=== PATIENT | male | born 1970 | race Caucasian/White ===

== ENCOUNTER 2020-10-27 15:33 | Emergency (ER) | payer OTHER, SELFPAY ==
[2020-10-27 15:43] VITALS: BP 125/64; PULSE 67; RESP 18; TEMP 37.4; O2SAT 98
--- NOTE | 2020-10-27 16:13 | ED.GENADULT ---
HPI - General Adult General Chief complaint: Upper Respiratory Infection Stated complaint: Sinus Time Seen by Provider: 10/27/20 16:00 Source: patient and RN notes reviewed Mode of arrival: ambulatory Limitations: no limitations History of Present Illness HPI narrative: Patient presents today complaining of pain to the left side of the nose x4 days. He does report intermittent swelling to this area as well as redness. Reports redness and swelling have resolved. Pain increases with touching the area, wearing his CPAP, or wearing his glasses for too long. Patient initially had some nasal congestion upon onset of symptoms, but this has resolved. Patient believed his symptoms were due to sinus issues and had been taking a decongestant without relief. He was also taking some Tylenol. He currently rates his pain 05/12. He has been vaccinated against COVID-19. History of diabetes and sleep apnea. The pain to the left side of the nose was such that he has not worn his CPAP for the last couple of days. MD complaint: Nose pain Related Data Home Medications Medication Instructions Recorded Confirmed aspirin 81 mg tablet,delayed 81 mg PO DAILY 10/24/19 10/24/19 release calcium carbonate 500 mg calcium 500 mg PO DAILY 10/24/19 10/24/19 (1,250 mg) tablet insulin aspart U-100 100 unit/mL 20 unit SUB-Q TID 10/24/19 10/24/19 (3 mL) subcutaneous pen sqvxibgvcnba-exe-yqbsb acid-vit 1 tablet PO DAILY 10/24/19 10/24/19 K-lycop 400 mcg-20 mcg-370 mcg tablet Allergies Allergy/AdvReac Type Severity Reaction Status Date / Time Penicillins Allergy Mild N/V Verified 10/29/19 13:57 Review of Systems Review of Systems: CONSTITUTIONAL: Denies body aches, fever, chills, or sweats. EYES: Denies visual changes, redness, or discharge. ENT: Denies rhinorrhea, congestion, sore throat, or otalgia.+ Pain, swelling, and redness to the left side of the nose CARDIOVASCULAR: Denies chest pain, palpitations, or edema. RESPIRATORY: Denies cough or dyspnea. GASTROINTESTINAL: Denies abdominal pain, nausea, vomiting, or diarrhea. GENITOURINARY: Denies dysuria or hematuria. SKIN: Denies rash, itching, or wounds. MUSCULOSKELETAL: Denies back pain, joint pain, or myalgia. NEUROLOGIC: Denies headache, numbness, tingling, or weakness. PSYCH: Denies depression or anxiety. [facility] Family History Family History Mother Family history of lung cancer Other Malignant neoplasm of prostate Social History Social History Smoking status: Current every day smoker Second hand tobacco smoke exposure: No Alcohol intake: never Comments At time of signature, I have reviewed and agree with nursing past medical, surgical, social and family history unless otherwise noted. Please see nursing chart for further information. There is no relevant family history pertinent to the presenting complaint Exam Narrative: GENERAL: Well-appearing, well-nourished, and in no acute distress. HEAD: Normocephalic, atraumatic. EYES: EOMI. No redness or drainage. Conjunctivae normal. ENT: Mucous membranes pink and moist. Nares clear. Some soft tissue tenderness to the left lateral nasal bridge. No edema noted. Subtle pinkness noted to area as well. This is the same area that would have pressure when patient wears his glasses and CPAP mask. Throat normal. Nontender frontal and maxillary sinuses. NECK: Normal AROM. Supple. No lymphadenopathy. CHEST: No respiratory distress. Clear to auscultation. HEART: Regular rate and rhythm. No murmur appreciated. Normal peripheral pulses. EXTREMITIES: Normal range of motion. No edema. SKIN: Warm, dry, no rash. Capillary refill normal. Normal skin turgor. NEURO: No focal deficits. Alert and oriented x3. Gait steady. PSYCH: Normal affect. No signs of depression or anxiety. Course Course Emergency Course:
== END 2020-10-27 16:20 | disposition home or self-care (01) ==
PROVIDERS: Emergency Provider Nurse Practitioner; PCP Internal Medicine
DX: J34.0 Abscess, furuncle and carbuncle of nose (principal); F17.200 Nicotine dependence, unspecified, uncomplicated; E78.00 Pure hypercholesterolemia, unspecified; G47.30 Sleep apnea, unspecified; E11.9 Type 2 diabetes mellitus without complications; Z96.41 Presence of insulin pump (external) (internal)
CPT/HCPCS: 99213; G0463

== ENCOUNTER 2021-03-31 09:20 | Outpatient (CLI) | payer OTHER, SELFPAY ==
[2021-03-31 11:24] LABS: SARS-CoV-2 RNA PCR Negative (Negative)
== END 2021-03-31 09:21 | disposition home or self-care (01) ==
LOC: CHSLAB 09:22
PROVIDERS: PCP Internal Medicine; Visit Provider Internal Medicine
DX: R68.89 Other general symptoms and signs (principal); Z20.822 Contact with and (suspected) exposure to COVID-19
CPT/HCPCS: C9803; U0003; U0005

== ENCOUNTER 2021-10-25 16:34 | Outpatient (CLI) | payer OTHER, SELFPAY ==
[2021-10-25 16:59] LABS: Alanine Aminotransferase 21 U/L (6-50); Aspartate Amino Transferase 27 U/L (17-59)
== END 2021-10-25 16:35 | disposition home or self-care (01) ==
LOC: ANHLAB 16:35
PROVIDERS: PCP Internal Medicine; Visit Provider Podiatrist Foot & Ankle Surgery
DX: B35.1 Tinea unguium (principal)
CPT/HCPCS: 36415; 84450; 84460

== ENCOUNTER 2022-01-24 16:23 | Outpatient (CLI) | payer OTHER, SELFPAY ==
[2022-01-24 17:01] LABS: Alanine Aminotransferase 28 U/L (6-50); Aspartate Amino Transferase 32 U/L (17-59)
== END 2022-01-24 16:24 | disposition home or self-care (01) ==
LOC: ANHLAB 16:27
PROVIDERS: PCP Family Medicine; Visit Provider Podiatrist Foot & Ankle Surgery
DX: B35.1 Tinea unguium (principal)
CPT/HCPCS: 36415; 84450; 84460

== ENCOUNTER 2023-04-04 09:35 | Emergency (ER) | payer OTHER, SELFPAY ==
[2023-04-04 09:56] VITALS: BP 121/80; PULSE 77; RESP 16; TEMP 36.8; O2SAT 98
--- NOTE | 2023-04-04 10:05 | ED.URI ---
HPI - URI/Sore Throat General Chief Complaint: Upper Respiratory Infection Stated Complaint: SINUS CONGESTION/DRAINAGE/COUGH/WEAK Source: patient and RN notes reviewed Mode of arrival: ambulatory Limitations: no limitations History of Present Illness HPI Narrative: 52 y/o male with hx DM presented for c/o headache, body aches, sinus pressure/congestion, cough, weakness, fever/chills. Onset 2-3 days. tested positive for Covid yesterday. Not taking anything for symptoms. Denies sob, wheezing, n/v/d. Smokes 1/2ppd. MD elicited complaint: cough Related Data Home Medications Medication Instructions Recorded Confirmed aspirin 81 mg tablet,delayed 81 mg PO DAILY 10/24/19 04/04/23 release (Adult Aspirin Regimen) calcium carbonate 500 mg calcium 500 mg PO DAILY 10/24/19 04/04/23 (1,250 mg) tablet (Calcium 500) mxivkvplzqec-unk-aqogs acid-vit 1 tablet PO DAILY 10/24/19 04/04/23 K-lycop 400 mcg-20 mcg-370 mcg tablet (One-A-Day Men's 50 Plus (with vitamin K)) insulin aspart U-100 100 unit/mL 0.1 unit continuous subcutaneous 11/07/21 04/04/23 subcutaneous solution (Novolog infusion DAILY U-100 Insulin aspart) atorvastatin 20 mg tablet 20 mg PO QHS 11/14/22 04/04/23 terbinafine HCl 250 mg tablet 250 mg PO .First week of month 11/14/22 04/04/23 Allergies Allergy/AdvReac Type Severity Reaction Status Date / Time Penicillins AdvReac Intermediate Nausea and Verified 04/04/23 09:44 Vomiting Review of Systems Review of Systems: CONSTITUTIONAL: Endorses malaise, chills, sweats, fever EYES: Denies visual changes, redness, or discharge ENT: Reports rhinorrhea, congestion, denies sinus pain, otalgia, sore throat CARDIOVASCULAR: Denies chest pain, palpitations, edema RESPIRATORY: Reports cough, post nasal drainage. Denies dyspnea GASTROINTESTINAL: Denies abdominal pain, nausea, vomiting, diarrhea SKIN: Denies rash or itching MUSCULOSKELETAL: Endorses myalgia NEUROLOGIC: Endorses headache PMFSH Past Medical History Medical History Cluster headaches Diverticulitis of large intestine Hyperlipidemia Sleep apnea in adult Uncomplicated type 1 diabetes mellitus Family History Family History Mother Family history of lung cancer Other Malignant neoplasm of prostate Social History Social History Smoking packs per day: 0.5 Smoking cigarettes per day: 10.0 Years smoked: 40 Smoking pack-years: 20.00 Smoking status: Current every day smoker Tobacco type: cigarettes Second hand tobacco smoke exposure: No Alcohol intake: never Substance use: never Substance use type: does not use Living arrangements: with family Occupation/Education: occupation 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 EYES: PERRLA, conjunctivae clear ENT: Mucous membranes moist. TM pearly garrett with dull light reflex bilaterally; no tragal tenderness. NECK: Supple. No lymphadenopathy CHEST: Clear to auscultation, breath sounds equal. No wheezing, rhonchi, rales, or stridor. No respiratory distress, speaks in full sentences. HEART: Regular rate and rhythm. No murmur heard. SKIN: Warm, dry, no rash. NEURO: Alert and oriented x3. PSYCH: Normal mood and affect Course Course Emergency Course: Patient is aware of diagnosis, understands and agrees to treatment plan. Anticipatory guidance given. Patient agrees to follow-up as directed and is aware of reasons to seek care at the emergency department. Portions of this record may have been created with voice recognition software
== END 2023-04-04 10:16 | disposition home or self-care (01) ==
PROVIDERS: Emergency Provider Nurse Practitioner Family; PCP Family Medicine
DX: U07.1 COVID-19 (principal); F17.210 Nicotine dependence, cigarettes, uncomplicated; E78.5 Hyperlipidemia, unspecified
CPT/HCPCS: 87426; 87804; 99213; C9803; G0463

== ENCOUNTER 2023-06-20 19:32 | Outpatient (NON) | payer OTHER, SELFPAY | END 2023-06-20 19:33 | disposition home or self-care (01) | LOC: ANHLAB 19:33 | PROVIDERS: PCP Family Medicine; Visit Provider Nurse Practitioner Family | DX: R31.9 Hematuria, unspecified (principal) | CPT/HCPCS: 87086 ==

== ENCOUNTER 2023-06-21 15:51 | Outpatient (CLI) | payer OTHER, SELFPAY ==
[2023-06-21 16:40] LABS: Basophils Absolute Auto 0.1 K/mm3 (0.0-0.1); Basophils Percent Auto 0.7 % (0.2-1.2); Eosinophils Absolute Auto 0.1 K/mm3 (0-0.3); Eosinophils Percent Auto 1.2 % (0-4.4); Hematocrit 44.1 % (42.0-52.0); Hemoglobin 14.4 g/dL (14.0-18.0); Immature Granulocyte Absolute 0.01 K/mm3 (0.00-0.031); Immature Granulocyte Percent A 0.1 % (0-0.5); Lymphocytes Absolute Auto 3.29 K/mm3 (0.9-3.2); Lymphocytes Percent Auto 38.9 % (18.3-44.2); Mean Corpuscular HGB Conc 32.7 g/dl (32-36); Mean Corpuscular Hemoglobin 30.8 pg (26-34); Mean Corpuscular Volume 94.2 fl (80-100); Mean Platelet Volume 10.4 fl (7.4-10.4); Monocytes Absolute Auto 0.7 K/mm3 (0.1-0.6); Monocytes Percent Auto 8.2 % (2.6-8.5); Neutrophils Absolute Auto 4.3 K/mm3 (1.3-6.7); Neutrophils Percent Auto 50.9 % (45.5-73.1); Platelet Count Result 230 k/mm3 (150-375); Red Blood Count 4.68 M/mm3 (4.6-6.20); Red Cell Distribution Width 12.6 % (11.5-14.5); White Blood Count 8.5 K/mm3 (4.5-10.0)
[2023-06-21 16:57] LABS: Alanine Aminotransferase 27 U/L (6-50); Albumin Level 4.4 g/dL (3.5-5.1); Alkaline Phosphatase 109 U/L (38-126); Anion Gap 2 mmol/L (8-16); Aspartate Amino Transferase 25 U/L (17-59); Bilirubin,Total 0.3 mg/dL (0.2-1.3); Blood Urea Nitrogen 14 mg/dL (9-20); Calcium 9.4 mg/dL (8.4-10.2); Carbon Dioxide 32 mmol/L (22-30); Chloride 104 mmol/L (98-107); Estimated Glomerular Filt Rate > 60; Glucose 149 mg/dL (65-110); Potassium 4.1 mmol/L (3.4-5.0); Sodium 138 mmol/L (137-145)
[2023-06-23 17:53] LABS: PSA, Free 0.15 ng/mL; PSA, Total 0.7 ng/mL (<=4.0)
[2023-06-26 07:35] LABS: CRP, High Sensitivity 1.8 mg/L (***)
== END 2023-06-21 15:52 | disposition home or self-care (01) ==
LOC: ANHGOSHLAB 15:52
PROVIDERS: PCP Family Medicine; Visit Provider Nurse Practitioner Family
DX: Z00.00 Encounter for general adult medical examination without abnormal findings (principal); R10.9 Unspecified abdominal pain; R11.10 Vomiting, unspecified; R19.7 Diarrhea, unspecified; R35.0 Frequency of micturition; R39.89 Other symptoms and signs involving the genitourinary system; R31.9 Hematuria, unspecified; Z12.5 Encounter for screening for malignant neoplasm of prostate
CPT/HCPCS: 36415; 80053; 84153; 84154; 85025; 86141

== ENCOUNTER 2023-06-27 10:44 | Outpatient (CLI) | payer OTHER, SELFPAY ==
--- NOTE | ~2023-06-27 | CT_ITS ---
EXAMINATION: CT abdomen pelvis wo con DATE: 06/27/2023 14:37 INDICATION: Unspecified abdominal pain, frequent urination TECHNIQUE: Computed tomography (CT) of the abdomen and pelvis was performed without intravenous contr ast. The dose-length product (DLP) was 563.54 mGy-cm. Automated exposure control and iterative recons truction technique were employed. COMPARISON: 09/20/2017 FINDINGS: Calcified nodules of the visualized lung bases are consistent with old granulomatous diseas e. The heart size is normal. Punctate calcifications in an otherwise normal spleen likely represent h ealed granulomatous disease. The liver, pancreas, gallbladder, and left adrenal gland are normal. The re is a stable 1.3 cm low-density mass of the right adrenal gland, consistent with an adenoma. The ki dneys are unremarkable. A moderate volume of colonic stool is present. No pathologically enlarged abd ominal or pelvic lymph nodes are identified. No free intraperitoneal gas or evidence of bowel obstruc tion. There is a tiny umbilical hernia containing fat. IMPRESSION: 1. No CT correlate for the patient's symptoms. Reviewed, dictated and finalized at location F.
== END 2023-06-27 10:45 ==
PROVIDERS: PCP Nurse Practitioner Family; Visit Provider Family Medicine
DX: R10.9 Unspecified abdominal pain (principal); R11.10 Vomiting, unspecified; R19.7 Diarrhea, unspecified; R35.0 Frequency of micturition; R39.89 Other symptoms and signs involving the genitourinary system
CPT/HCPCS: 74176

== ENCOUNTER 2024-04-04 14:38 | Outpatient (CLI) | payer OTHER, SELFPAY ==
[2024-04-04 18:34] LABS: Alanine Aminotransferase 24 U/L (6-50); Albumin Level 4.1 g/dL (3.5-5.1); Alkaline Phosphatase 98 U/L (38-126); Aspartate Amino Transferase 31 U/L (17-59); Bilirubin,Total 0.3 mg/dL (0.2-1.3); Cholesterol 200 mg/dL (0-200); HDL Direct 95 mg/dL; Triglycerides 117 mg/dL (<150)
[2024-04-04 18:46] LABS: LDL Cholesterol Direct 69 mg/dL
== END 2024-04-04 14:39 | disposition home or self-care (01) ==
LOC: ANHGOSHLAB 14:41
PROVIDERS: PCP Family Medicine
DX: E78.2 Mixed hyperlipidemia (principal); E27.8 Other specified disorders of adrenal gland; Z96.41 Presence of insulin pump (external) (internal)
CPT/HCPCS: 36415; 80061; 80076

== ENCOUNTER 2024-04-09 11:45 | Outpatient (CLI) | payer OTHER, SELFPAY ==
--- NOTE | ~2024-04-09 | XR_ITS ---
XR cervical spine 4-5V Ordering provider: Woody Hamm, DC CCST History: . Cervical radiculopathy . Comparison: None. FINDINGS: VERTEBRAL BODIES: Normal height and alignment. No visible fracture or subluxation. The dens is intact . DISK SPACES: Narrowing of the disc C5-C6 and C6-C7. Multilevel uncovertebral joint osteoarthritic gary nges. Narrowing of the intervertebral foramina in the lower cervical area on the left side. PARASPINOUS SOFT TISSUES: No prevertebral soft tissue swelling. IMPRESSION: No acute osseous abnormality cervical spine. Multilevel degenerative disc disease. Reviewed, dictated and finalized at location A. MOTIVE SALES PROFESSIONAL
== END 2024-04-09 11:46 | disposition home or self-care (01) ==
LOC: MICIMG 11:47
PROVIDERS: PCP Family Medicine; Visit Provider Chiropractor
DX: M50.322 Other cervical disc degeneration at C5-C6 level (principal); M50.323 Other cervical disc degeneration at C6-C7 level; T50.A15A Adverse effect of pertussis vaccine, including combinations with a pertussis component, initial encounter
CPT/HCPCS: 72050

== ENCOUNTER 2024-05-01 16:07 | Outpatient (CLI) | payer OTHER, SELFPAY ==
--- NOTE | ~2024-05-01 | XR_ITS ---
EXAM: XR shoulder RT min 2V DATE: 05/01/2024 16:22 HISTORY: M25.511 - Pain in right shoulder . COMPARISON: None available. FINDINGS: Normal mineralization. No fracture or dislocation. No lytic or blastic lesion. Inferior os teophytosis at the acromion. Mild degenerative change at the AC joint and glenohumeral joint. No eros ion or periosteal change. Soft tissues within normal limits. IMPRESSION: Mild polyarticular osteoarthritis of the right shoulder. Reviewed, dictated and finalized at location K. ATE DUTY AIDE
== END 2024-05-01 16:08 | disposition home or self-care (01) ==
LOC: GOSHIMG 16:08
PROVIDERS: PCP Family Medicine; Visit Provider Nurse Practitioner
DX: M19.011 Primary osteoarthritis, right shoulder (principal)
CPT/HCPCS: 73030

== ENCOUNTER 2024-05-12 14:51 | Outpatient (CLI) | payer OTHER, SELFPAY ==
--- NOTE | ~2024-05-12 | MR_ITS ---
EXAMINATION: MR shoulder RT wo con DATE: 05/12/2024 15:36 INDICATION: Right shoulder pain. TECHNIQUE: Magnetic resonance imaging (MRI) of the right shoulder was performed without intravenous c ontrast. Sequences included axial PD-weighted FS FSE, coronal oblique PD-weighted FS FSE and T2-weigh renata FS FSE, and sagittal oblique T2-weighted FS FSE and T1-weighted FSE. COMPARISON: Right shoulder radiographs 05/01/2024 FINDINGS: Coracoacromial arch: The acromion undersurface is flat in morphology (type I). There is severe acromioclavicular joint ost eoarthritis. There is mild subacromial/subdeltoid bursitis. Rotator cuff: There is mild supraspinatus and infraspinatus tendinopathy. Teres minor tendon is normal. There is mi ld subscapularis tendinopathy. There is no asymmetric fatty atrophy of the rotator cuff muscle bellie s. Biceps tendon and glenoid labrum: Biceps tendon is in bicipital groove. Intra-articular biceps tendon is normal. The glenoid labrum is normal. Fluid: There is a small glenohumeral joint effusion. Bones/cartilage: Glenoid cartilage is normal. Humeral head cartilage is normal. IMPRESSION: 1. Mild rotator cuff tendinopathy. No tear. 2. Mild subacromial/subdeltoid bursitis. 3. Small glenohumeral joint effusion. 4. Severe acromioclavicular joint osteoarthritis. Reviewed, dictated and finalized at location A. OR GEOTECHNICAL ENGINEER
--- NOTE | ~2024-05-12 | MR_ITS ---
EXAMINATION: MR cervical spine wo con DATE: 05/12/2024 16:03 INDICATION: Neck pain. Right shoulder pain. TECHNIQUE: Magnetic resonance imaging (MRI) of the cervical spine was performed without intravenous c ontrast. Sequences included sagittal T2-weighted FSE, sagittal T2-weighted FS FSE, sagittal T1-weight ed FSE, axial MERGE, and axial T2-weighted FSE. COMPARISON: Cervical spine radiographs 04/09/2024 FINDINGS: There is 3 degrees dextrocurvature of cervical spine. Vertebral body heights are normal. Th ere is mildly decreased disc height at C5-C6 and C6-C7. The spinal cord signal intensity is normal. T he following disc levels are specifically discussed: C2-C3: The disc does not extend beyond the endplate margin. There is no uncovertebral joint osteoarth ritis. There is mild bilateral facet joint osteoarthritis. There is no neural foraminal stenosis. The re is no central canal stenosis. C3-C4: The disc does not extend beyond the endplate margin. There is mild bilateral uncovertebral hina nt osteoarthritis. There is mild right and moderate left facet joint osteoarthritis. There is mild le ft neural foraminal stenosis. There is no central canal stenosis. C4-C5: The disc does not extend beyond the endplate margin. There is no uncovertebral joint osteoarth ritis. There is mild bilateral facet joint osteoarthritis. There is no neural foraminal stenosis. The re is no central canal stenosis. C5-C6: There is a left central extrusion. There is mild right and moderate left uncovertebral joint o steoarthritis. There is mild bilateral facet joint osteoarthritis. There is mild bilateral neural for aminal stenosis. There is mild central canal stenosis. C6-C7: The disc is bulging. There is moderate bilateral uncovertebral joint osteoarthritis. There is mild right and moderate left facet joint osteoarthritis. There is mild bilateral neural foraminal joseph nosis. There is mild central canal stenosis. C7-T1: The disc does not extend beyond the endplate margin. There is no uncovertebral joint osteoarth ritis. There is mild bilateral facet joint osteoarthritis. There is no neural foraminal stenosis. The re is no central canal stenosis. IMPRESSION: 1. Mild cervical spondylosis. Reviewed, dictated and finalized at location A. ERY STARTER
== END 2024-05-12 14:52 | disposition home or self-care (01) ==
LOC: GOSHIMG 14:52
PROVIDERS: PCP Chiropractor; Visit Provider Nurse Practitioner
DX: M75.31 Calcific tendinitis of right shoulder (principal); M47.812 Spondylosis without myelopathy or radiculopathy, cervical region
CPT/HCPCS: 72141; 73221

== ENCOUNTER 2024-07-08 10:43 | Outpatient (CLI) | payer OTHER, SELFPAY ==
--- NOTE | 2024-07-08 11:30 | NEURO_ITS ---
Impression: # Complains of paresthesia of upper extremities. Not diabetic. ? # Bilateral ulnar neuropathy around the elbows. ? # No Carpal Tunnel Syndrome. ? # Needle/EMG exam abnormal proximally as well including deltoid and triceps muscles bilaterally suggesting ? higher involvement as well. ? # Clinical correlation recommended. ?? Nerve Conduction Studies Anti Sensory Summary Table ?Stim Site NR Peak (ms) P-T Amp (?V) Site1 Site2 Delta-P (ms) Dist (cm) Derian (m/s) Left Median Anti Sensory (2-3nd Digit) Wrist ? 3.4 39.7 Wrist 2-3nd Digit 3.4 14.0 41 Wrist ? 3.6 68.2 Wrist 2-3nd Digit 3.4 14.0 41 Right Median Anti Sensory (2-3nd Digit) Wrist ? 3.4 40.0 Wrist 2-3nd Digit 3.4 14.0 41 Wrist ? 3.2 62.5 Wrist 2-3nd Digit 3.4 14.0 41 Left Radial Anti Sensory (Base 1st Digit) Wrist ? 2.3 20.7 Wrist Base 1st Digit 2.3 0.0 Right Radial Anti Sensory (Base 1st Digit) Wrist ? 2.8 18.5 Wrist Base 1st Digit 2.8 0.0 Left Ulnar Anti Sensory (5th Digit) Wrist ? 3.2 33.6 Wrist 5th Digit 3.2 14.0 44 Right Ulnar Anti Sensory (5th Digit) Wrist ? 3.3 66.3 Wrist 5th Digit 3.3 14.0 42 Motor Summary Table ?Stim Site NR Onset (ms) O-P Amp (mV) Site1 Site2 Delta-0 (ms) Dist (cm) Derian (m/s) Left Median Motor (Abd Poll Brev) Wrist ? 4.0 2.7 Elbow Wrist 5.1 29.0 57 Elbow ? 9.1 5.8 Right Median Motor (Abd Poll Brev) Wrist ? 3.4 2.9 Elbow Wrist 5.7 29.0 51 Elbow ? 9.1 8.0 Left Ulnar Motor (Abd Dig Minimi) Wrist ? 2.8 8.9 A Elbow Wrist 6.1 29.0 48 A Elbow ? 8.9 7.8 B Elbow Wrist 4.1 23.0 56 B Elbow ? 6.9 6.7 Right Ulnar Motor (Abd Dig Minimi) Wrist ? 3.0 9.2 A Elbow Wrist 6.2 29.0 47 A Elbow ? 9.2 8.0 B Elbow Wrist 4.7 22.0 47 B Elbow ? 7.7 8.2 F Wave Studies ?NR F-Lat (ms) L-R F-Lat (ms) Left Median (Mrkrs) (Abd Poll Brev) ? 30.70 0.94 Right Median (Mrkrs) (Abd Poll Brev) ? 29.77 0.94 Left Ulnar (Mrkrs) (Abd Dig Min) ? 30.16 1.60 Right Ulnar (Mrkrs) (Abd Dig Min) ? 31.76 1.60 EMG ?Side Muscle Nerve Root Ins Act Fibs Amp Dur Recrt Comment Right 1stDorInt Ulnar C8-T1 Nml Nml Nml Nml Nml Right Ext Indicis Radial (Post Int) C7-8 Nml Nml Nml Nml Nml Right Ext Digitorum Radial (Post Int) C7-8 Nml Nml Nml Nml Nml Right BrachioRad Radial C5-6 Nml Nml Nml Nml Nml Right PronatorTeres Median C6-7 Nml Nml Nml Nml Nml Right Abd Poll Brev Median C8-T1 Nml Nml Nml Nml Nml Right ABD Dig Min Ulnar C8-T1 Nml Nml Nml Nml Nml Right FlexPolLong Median (Ant Int) C7-8 Nml Nml Nml Nml Nml Right Abd Poll Long Radial (Post Int) C7-8 Nml Nml Nml Nml Nml Left 1stDorInt Ulnar C8-T1 Nml Nml Nml Nml Nml Left Ext Indicis Radial (Post Int) C7-8 Nml Nml Nml Nml Nml Left Ext Digitorum Radial (Post Int) C7-8 Nml Nml Nml Nml Nml Left BrachioRad Radial C5-6 Nml Nml Nml Nml Nml Left PronatorTeres Median C6-7 Nml Nml Nml Nml Nml Left Abd Poll Brev Median C8-T1 Nml Nml Nml Nml Nml Left ABD Dig Min Ulnar C8-T1 Nml Nml Nml Nml Nml Right Biceps Musculocut C5-6 Nml Nml Nml >12ms +1 Right Triceps Radial C6-7-8 Nml Nml Nml >12ms +1 Right Deltoid Axillary C5-6 Nml Nml Nml Nml Nml Left Biceps Musculocut C5-6 Nml Nml Nml >12ms +1 Left Triceps Radial C6-7-8 Nml Nml Nml >12ms +1 Left Deltoid Axillary C5-6 Nml Nml Nml Nml Nml MTDD
--- OUTSIDE RECORDS SUMMARY | 2024-07-08 12:04 | XMS_ITS | Clinical Summary ---
Author Organization [facility] Address On license of [facility] [place] [address] Care Team Providers Care Addictions Counselor Name Role Phone Unavailable Primary Care Provider Unavailabl e Social History Tobacco Use Types Packs/Day Years Used Date Smoking Tobacco: Never Assessed Sex and Gender Information Value Date Recorded Sex Assigned at Not on file Legal Sex Male 6:24 PM CDT Gender Identity Not on file Sexual Orientation Not on file Plan of Treatment Health Maintenance Due Date Last Done Comments Colorectal Cancer Screening Colonoscopy (10 Years) 1969 Annual Physical 1972 Hepatitis C 07/14/1987 DTaP, Tdap and Td Vaccines ( 1 - Tdap) 1988 Hepatitis B Vaccines (1 of 3 - 19+ 3-dose series) 1988 Zoster Vaccines (1 of 2) 07/14/2019 COVID-19 Vaccine ( - 2023-2 5 season) 2023 Meningococcal B Vaccine Aged Out No l onger eligible based on patient's age to complete this topic Meningococcal Vaccine Aged Out No giancarlo doris eligible based on patient's age to complete this topic Pneumococcal Vaccine: Pediat rics (0 to 5 Years) and At-Risk Patients (6 to 64 Years) Aged Out No longer eligible b ased on patient's age to complete this topic RSV Immunizations Under 20 Months Aged Out No longer eligible based on patient's age to complete this topic
--- OUTSIDE RECORDS SUMMARY | 2024-07-08 12:04 | XMS_ITS | Continuity of Care Document ---
Author Organization [facility] Address [address] [place] [address] Phone Care Team Providers Care Dry Cure Worker Name Role Phone Arredondo OD, Evan Unavailable Unavailable Advance Directives Directive Yes / No Effective Date File Name No Information Encounters Encounter Description Practice Location Reason(s) For Visit Diagnoses Date Provider Providers Copied on Encounter [facility], [address], [place], [place], [id number], [place] tel:[phone] [facility] No Information 0 [phone] Arredondo OD Evan. [address] , [address], [place], [address], [place]. tel:[phone] Family History Family Member Type Diagnosis Age At Onset No Information Payers Payer name Insurance type Covered democrat ID Authoriza tion(s) No Information Social History Type Description Quantity Date Captured Comments Sex Male Smoking Status No Information Chief Complaint And Reason For Visit No Information Reason For Referral Reason For Referral No Information History Of Present Illness Encounter Date Complaint History Of Prese nt Illness No Information Functional Status Date Functional Assessmen t No Information Instructions Date Instruction Additional Infor mation No Information Assessments Type Assessment Date No Information Patient Care Teams Name Effective Dates (start - stop) Status Members No Information
--- OUTSIDE RECORDS SUMMARY | 2024-07-08 12:04 | XMS_ITS | Clinical Summary ---
Author Organization [employer] [employer] [facility] ing Address [address] [place] [address] Care Team Providers Care Equipment Washer Name Role Phone Unavailable Primary Care Provider Unavailabl e Allergies Active Allergy Reactions Criticality Noted Date Comments Ampicillin Nausea and Vomiting Low 10/08/2014 Penicillins Nausea and Vomiting Low 10/08/2014 Medications metFORMIN (GLUCOPHAGE XR) 500 mg Extended Release 24 hour tablet Take 4 tablets QAM. 5 Active MULTIVITS-MINERAL S/FA/LYCOPENE (ONE-A-DAY MEN'S MULTIVITAMIN ORAL) Take by mouth Take 1 tablet daily . Active calcium citrate-vitamin d3 (CITRACAL D MAX) 315-250 mg-unit Tablet Take 1 Tab by mouth 2 times daily. Active lancets (ONE TOUCH DELICA) 33 gauge Check 3 times a day. 100 Package 0 5 Active cholecalciferol, Vitamin D3, (VITAMIN D3) 1,000 unit Capsule Take 1,000 Units by mouth daily. Active NOVOLOG 100 unit/mL vial Sliding Scale on Pump. 6 Active OTHER One Touch Verio Strips TID . Active Clobetasol-Emolie nt 0.05 % Foam Apply to affected area 2 times daily . 6 Active EPITOL 200 mg tablet Take one tablet by mouth every 12 hours 180 Tablet 2 7 Active simvastatin (ZOCOR) 20 mg tablet TAKE ONE TABLET BY MOUTH ONE TIME DAILY 90 Tablet 2 8 Active Active Problems Problem Noted Date Diagnosed Date Diverticulitis of large inte caty without perforation or abscess without bleeding 05/26/2017 Overview (05/26/2017): 05/20 - managed medically Right adrenal mass 05/26/2017 Overview (05/26/2017): 2/18 - 1.2 cm R adrenal mass , benign appearing De Quervain's disease (tenosynovitis) 03/21/2016 Intrinsic eczema 01/19/2015 Impotence of organic origin 01/19/2015 Trigeminal neuralgia of right side of face 10/08 Overview (10/08/2014): Diagnosed in , R sided, headaches and lacrimation, started epitol and improved. Diabetes mellitus type 1 Overview (01/19/2015): 07/2014 - insulin started Antibodies 06/27/14 - ÓSCAR 65 markedly elevated 99.3 (0.0-1.5) Hyperlipidemia Tobacco abuse disorder Immunizations Immunization Administration Dates Next Due (ADACEL/BOOSTRIX)(10 YR UP) TDAP VACCINE, 0.5ML, IM 10/11/2015 (PNEUMOVAX 23)(50 YRS UP) PN EUMOCOCCAL POLYSACCHARIDE (PPV23) 0.5 ML, IM 10/08/2014 Influenza Seasonal Unspecified Formulation IM Influenza Vaccine Split 3+ Yrs PF IM 01/06/2017, 01/06/2016 Family History Medical History Relation Name Comments Healthy Father Lung Cancer Mother Relation Name Status Comments Father Mother Alive Social History Tobacco Use Types Packs/Day Years Used Date Smoking Tobacco: Every Day Cigarettes 1 33 Smokeless Tobacco: Never Tobacco Cessation:Ready to Q uit: No; Counseling Given: Yes Alcohol Use Standard Drinks/Week Comments No 0 (1 standard drink = 0.6 oz pur e alcohol) recovering alcoholic Sex and Gender Information Value Date Recorded Sex Assigned at Not on file Legal Sex Male 12:52 PM CDT Gender Identity Not on file Sexual Orientation Not on file Last Filed Vital Signs Vital Sign Reading Time Taken Comments Blood Pressure 113/62 03/20/2017 1:07 PM ENGINEERING ANALYST Pulse 72 03/20/2017 1:07 PM ENGINEERING ANALYST Temperature - - Respiratory Rate - - Oxygen Saturation 97% 10/16/2016 10:28 AM CDT Inhaled Oxygen Concentration - - Weight 83.1 kg (183 lb 3.2 oz) 03/20/2017 1:07 P M ENGINEERING ANALYST Height 175.3 cm (5' 9 ) 03/20/2017 1:07 PM ENGINEERING ANALYST Body Mass Index 27.05 03/20/2017 1:07 PM ENGINEERING ANALYST Plan of Treatment Health Maintenance Due Date Last Done Comments HEPATITIS B VACCINES (1 of 3 - 19+ 3-dose series) 1988 COLORECTAL SCREENING 2014 Colorectal Cancer Screening 2014 FIT-DNA Q 3 years 2014 FIT/FOBT Q 1 year 2014 Flex Sig/CT Colonography Q 5 years 2014 PNEUMOCOCCAL VACCINE 0-49 YE ARS (2 of 2 - PCV) 10/09/2015 10/08/2014 DIABETES MICROALBUMIN ANNUAL SCREEN 10/11/2016 10/12/2015 DIABETES HBA1C Q 6 MONTHS 04/18/20172016, 02/23/2016, 10/12/2015, Additional history exists DIABETES ANNUAL FOOT EXAM 10/16/20172016, 10/16/2016, 10/11/2015, Additional history exists LDL CHOLESTEROL ANNUAL 10/16/2017 7, 10/12/2015, 09/24/2014 DIABETES ANNUAL RETINAL EXAM 04/10/201812/2017, 03/28/2016, 04/02/2015, Additional history exists ZOSTER VACCINE (1 of 2) 07/14/2019 INFLUENZA VACCINE (#1) 2023 7, 01/06/2016, 01/07/2015 DTAP/TDAP/TD VACCINES (2 - T d or Tdap) 10/10/2025 10/11/2015 Procedures Procedure Name Priority Date/Time Associated Diagnosis Comments DIABETES EYE EXAM Routine 04/10/2017 LIPID PANEL Routine 10/16/2016 11:48 AM CDT Pure hypercholesterolemia HEMOGLOBIN A1C Routine 10/16/2016 11:48 AM CDT Type 1 diabetes mellitus without complication (CMS/HCC) MICROALBUMIN/CREA TININE RATIO, RANDOM UR Routine 10/12/2015 7:20 AM CDT Type 1 diabetes mellitus without complication (CMS/HCC) from Last 3 Months or Most Recently Relevant to Health Maintenance Results * DIABETES EYE EXAM (04/10/2017) us Martin Rudolph III, OD HEALTH MAINTENANCE Edited Result - Final [facility] CLIA# [id number] [address] * (ABNORMAL) HEMOGLOBIN A1C (10/16/2016 11:48 AM CDT) HEMOGLOBIN A1C 6.8(H) 4.0 - 6.0 % 10/16/2016 7:24 PM CDT [facility] Comment:Note: Effective as o f 04/23/2015 a new methodology, Turbidimetric inhibition immunoassay (TINIA),has been implemented. EST. AVG GLUCOSE, A1C 148 mg/dL 10/16/2016 7:24 PM CDT [facility] Blood Venipuncture / Unknown 10/16/2016 11:48 AM CDT 10/16/2016 11:48 AM CDT us Tr Devi MD CHEMISTRY ORDERABLES Fi nal Result [facility] CLIA# [id number] [address] [facility] [place] [address] * (ABNORMAL) LIPID PANEL (10/16/2016 11:48 AM CDT) CHOLESTEROL 182 <200 mg/dL 10/16/2016 7:33 PM CDT [facility] TRIGLYCERIDE 49 <150 mg/dL 10/16/2016 7:33 PM CDT [facility] HDL 103(H) 40 - 59 mg/dL 10/16/2016 7:33 PM CDT [facility] LDL CALCULATED 69 <100 mg/dL 10/16/2016 7:33 PM CDT [facility] NON-HDL CHOLESTEROL 79 <130 mg/dL 10/16/2016 7:33 PM CDT [facility] Blood Venipuncture / Unknown 10/16/2016 11:48 AM CDT 10/16/2016 11:48 AM CDT Narrative [facility] - 10/16/2016 7:33 PM CDT TOTAL CHOLESTEROL mg/dL Desirable <200 Borderline high 200-239 High >=240 TRIGLYCERIDES mg/dL Normal <150 Borderline high 150-199 High 200-499 Very high >=500 HDL CHOLESTEROL mg/dL Low <40 Normal 40-59 Desirable >=60 NON HDL CHOLESTEROL mg/dL Optimal <130 Near Optimal 130-159 Borderline High 160-189 Very High >=190 Calculated LDL mg/dL Optimal <100 Near Optimal 100-129 Borderline High 130-159 High 160-189 Very High >=190 ATPIII Guidelines Reference Ranges for Lipid Panels (NCEP/AMA) us Tr Devi MD CHEMISTRY ORDERABLES Fi nal Result Performing Organization Address City/[facility]/ZIP Co de Phone Number [facility] CLIA# [id number] [address] [place] [address] * MICROALBUMIN/CREATININE RATIO, RANDOM UR (10/12/2015 7:20 AM CDT) Creatinine, Urine 57.4 Not Estab. mg/dL [facility] MICROALBUMIN URINE <3.0 Not Estab. ug/mL [facility] MICROALBUMIN/CREA T RATIO, UR <5.2 0.0 - 30.0 mg/g creat [facility] Urine specimen (specimen) URINE SPECIMEN OBTAINED BY CLEAN CATCH PROCEDURE / Unknown 10/12/2015 7:20 AM CDT 10/12/2015 12:35 PM CDT Narrative [facility] - 10/14/2015 7:16 AM CDT Performed at: [address] [place] [id number] Preparing Box Tender: Ronnie Ayon PhD, Phone: [phone] us Tr Devi MD URINE ORDERABLES Final Result [facility] from Last 3 Months or Most Recently Relevant to Health Maintenance Insurance [employer] O OPEN ACCESS
--- OUTSIDE RECORDS SUMMARY | 2024-07-08 12:05 | XMS_ITS | Clinical Summary ---
Author Organization [facility] 2 Address [address] [facility] [place] [address] Care Team Providers Care Nuclear Equipment Sales Engineer Name Role Phone Cele Boyer DO Primary Care Provider [phone] Allergies Active Allergy Reactions Criticality Noted Date Comments Ampicillin Penicillins Medications aspirin 81 mg tablet take one daily 06/25/19 15 Active pen needle, diabetic 32 gauge x 5/32 needle using 4 -6 a day 08/06/19 15 Active carBAMazepine (TEGretol) 200 mg tablet 2 times daily. 06/25/19 15 Active multivitamin tabletIndications :Vitamin Deficiency Prevention Take by mouth. Active clobetasol-emolli ent 0.05 % topical foam Apply topically 2 times daily 03/07/20 16 Active glucagon (Baqsimi) 3 mg/actuation spray,non-aerosol Administer 3 mg into affected nostril(s) as needed (hypoglycemia ) 2 each 11 04/29/19 20 Active calcium carbonate (OS-SAMY) 1,250 mg (500 mg elemental) tablet 11/01/19 21 Active lancets (Accu-Chek Fastclix Lancet Drum) miscIndications:T ype 1 diabetes mellitus without complication (HCC) Use to check blood sugar 2-3 times per day using the accu-chek guide 200 each 3 12/28/19 21 Active urine glucose-ketones test strip Use as directed for blood sugar > 300 or when sick 50 strip 1 03/08/20 21 Active cholecalciferol (VITAMIN D-3) 2000 unit tablet Act aleksey terbinafine (LamiSIL) 250 mg tablet Take 1 tablet (250 mg total) by mouth daily 10/29/19 22 Active insulin glargine (BASAGLAR) 100 unit/mL (3 mL) pen for injectionIndicati ons:Type 1 diabetes mellitus without complication (HCC) Inject 20 units once daily in case of pump failure 15 mL 1 08/02/19 23 Active blood glucose diagnostic stripIndications: Type 1 diabetes mellitus without complication (HCC) Use to test glucose 2-3 times a day using accuchek guide 100 each 3 04/04/19 25 Active atorvastatin (LIPITOR) 40 mg tabletIndications :Mixed hyperlipidemia Take 1 tablet (40 mg total) by mouth daily 90 tablet 3 04/04/19 25 Active insulin aspart (NovoLOG) 100 unit/mL vial for injectionIndicati ons:Type 1 diabetes mellitus without complication (HCC) USE PER INSULIN PUMP - DAILY DOSE OF 100 UNITS 90 mL 2 06/24/19 25 Active insulin aspart (NovoLOG) 100 unit/mL vial for injectionIndicati ons:Type 1 diabetes mellitus without complication (HCC) USE PER INSULIN PUMP - DAILY DOSE OF 100 UNITS 90 mL 2 08/13/19 24 2024 Discontinued Active Problems Problem Noted Date Diagnosed Date Right adrenal mass 04/04/2024 clinical specialist medical device associated with adverse incidents 03/08/2021 Assessment & Plan (03/08/2021 5:36 PM CLINICAL MATERIAL HANDLER): He is adept in using and managing the insulin pump and CGM. Diabetes education is beneficial for him as he is intelligent and motivated to manage his diabetes. Has immunity to COVID-19 virus 03/08/2021 Overview (03/08/2021): Pfizer vaccine x2 doses. Booster x1 dose. Vitamin D deficiency 12/07/2020 Assessment & Plan (09/04/2021 12:41 PM CDT): -Continue current Vitamin D supplement Assessment & Plan (03/08/2021 5:35 PM CLINICAL MATERIAL HANDLER): Continue over the counter supplements. 08/2020- Vitamin D 19 Insulin pump titration 12/07/2020 Mixed hyperlipidemia 09/25/2014 Assessment & Plan (12/07/2021 12:20 PM CDT): -Last labs dated 09/10/21 : TC 214 Trig 54 HDL 96 LDL 108 -Will continue same medical management Assessment & Plan (09/04/2021 12:42 PM CDT): -Last LDL was 97 in August 2020 -Will continue statin as it is being tolerated without side effects Assessment & Plan (03/08/2021 5:35 PM CLINICAL MATERIAL HANDLER): Continue statin therapy and optimize glycemic control. 08/2020- HDL 102, LDL 97 Assessment & Plan (04/28/2019 10:31 AM CLINICAL MATERIAL HANDLER): Continue simvastatin. Tolerating without side effects. Assessment & Plan (01/14/2019 11:03 AM CDT): Continue simvastatin. Tolerating without side effects. Assessment & Plan (10/19/2018 3:15 PM CDT): Continue statin. Tolerating without side effects. Assessment & Plan (04/10/2018 2:46 PM CLINICAL MATERIAL HANDLER): Lipid panel on September 17, 2017 showed total cholesterol 196, triglyceride 69, HDL 94, LDL 88. Will continue simvastatin 20 mg at bedtime. Assessment & Plan (09/17/2017 8:42 PM CDT): 09/17/2017 LDL 88; HDL 94 and NLF Continue simvastatin Lipids will be reassessed in 1 year. Type 1 diabetes mellitus without complication Assessment & Plan (12/07/2021 12:19 PM CDT): -Currently using Tandem insulin pump with Dexcom and Control IQ -A1C on 12/07/21 was 7.8% -Dexcom download indicates some variability. His correction doses have not been lowering him enough so he gives additional correction doses, which leads to stacking of insulin resulting in some lows. Will adjust correction factor from 30-->25 and follow with his response. May consider adjusting carb ratio as well later on. -Discussed diet and activity modifications. -Advised to call with any concerns/complaints regarding glucose readings -Eye exam is up to date Assessment & Plan (09/06/2021 4:43 PM CDT): -Currently using Tandem insulin pump with Dexcom and Control IQ -A1C on 09/06/2021 was 8% - Dexcom download indicates some post meal glucose excursions. Will change his 7:00 a.m. settings to 8:00 a.m.. Will adjust his 8:00 a.m. basal rate to 0.3 units/hour. Will change his carb ratio at 5:00 p.m. to 5. Will follow with his response. -Discussed diet and activity modifications. -Advised to call with any concerns/complaints regarding glucose readings -Eye exam is up to date -Foot exam reveals no evidence of sensation loss Assessment & Plan (03/08/2021 5:39 PM CLINICAL MATERIAL HANDLER): Hemoglobin A1c shows a slight increase to 8.0%. Continue Tandem insulin pump + Dexcom for integrated technology. Recommend increasing carb ratio with breakfast to prevent post meal hyperglycemia. Recommend smaller portions at supper, no more than 100 grams of carbohydrate, to prevent post meal hyperglycemia/hyperglycemia before bed. Assessment & Plan (01/14/2019 11:02 AM CDT): The patient has type 1 diabetes, currently using a tandem insulin pump and dex com for his diabetes management. His basal insulin accounts for only 8% of his insulin delivery in a day. His glucose pattern remains suboptimal. He has had recent hyperglycemia over the past few week, and his basal rates were increased by 20% last week. His glycemic pattern has not shown improvement with those changes. Will make further adjustments to basal settings as noted below. He has been entering additional carbohydrates in to his bolus calculator an order to get additional insulin delivery. Instructed that with increasing his basal rates he should require less bolus, and recommend that he enter an accurate amount carbohydrate so his doses can be appropriately adjusted. He is agreeable to this plan. His eye exam is up-to-date. Labs were reviewed; the last lab results on record are from August 2017. He does not remember if he had labs with his primary care physician this summer. Fasting lab orders were entered. He will check to see if he has had labs within the past 6 months and if not he will have the labs drawn. He has had a flu shot and pneumonia shot already this season. He will follow-up in April as scheduled for follow- up. Basal settings: Midnight 0.275 units/hour--> 0.3 units/hour 2:00 a.m.: 0.25 units/hour--> 0.275 units/hour 7:00 a.m.: 0.2 units/hour--> 0.25 units/hour 8:00 a.m.: 0.15 units/hour (no change due to glucose readings dropping with exercise during the day) 5:00 p.m.:--> 0.25 units/hour -->0.275 units/hour Assessment & Plan (10/21/2018 3:23 PM CDT): The patient has type 1 diabetes, currently using Fiasp per tandem insulin pump for his diabetes management. Review of his dex com download indicates post breakfast glucose excursions. Discussed adjusting his insulin to carb ratio at breakfast, but at this time he declines. Discussed limiting his carbohydrate intake. His hemoglobin A1c at today's visit of October 21, 2018 was 7.6%. His eye exam is up-to-date. He states he had labs last week with his primary care physician and they were sending the results to the office. Will review those results when they become available. He will follow-up with me in December as scheduled as well as the diabetes educators. He will follow-up every 3 months thereafter. Will call sooner with any questions or concerns. Assessment & Plan (04/15/2018 5:19 PM CLINICAL MATERIAL HANDLER): A1c at today's visit of April 15, 2018 was stable at 7.2%. He was seen by Bryanna for education prior to his appointment with me. Review of his dex com indicated of slight rise in blood glucose overnight as well as after his evening meal. Insulin pump settings adjusted as noted below. He is using a dex com G4 and calibrating twice a day. He will follow-up with Dr. Curran as scheduled in July and will follow-up in September with me. Insulin pump changes as noted: Start Time Basal Correction Carb Ratio Target BG 0000 0.25 50 14 100 mg/dl 0200 0.22 50 9 100 0700 0.16 50 11 100 0800 0.12 50 10 100 1700 0.2 50 7.5 100 Assessment & Plan (09/17/2017 8:39 PM CDT): Diabetes is improving with treatment. BG is going up in the morning even when he is not eating. Extended the 2 am basal rate to run until 7 am Diabetes will be reassessed in 3 months. 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 Eczema 06/24/2014 Encounters Date Type Department Care Team Description 04/18/2024 Orders Only [facility] Metabolism and Lipid [address] [facility] [address] [place] [address] [place] [address] Nikki Sibley MD 04/10/2024 Orders Only [facility] Metabolism and Lipid [address] [facility] 5[address] [place] [address] [place] [address] Rei Casey, Vannesa Chatterjee RN Right adrenal mass (Primary Dx) from Last 3 Months Immunizations Immunization Administration Dates Next Due Influenza, Quadrivalent, Crystal l Culture-based MDCK, Antibiotic Free, Intramuscular 01/04/2019 Influenza, Quadrivalent, Spl it, Preservative Free, Intramuscular 12/26/2019,01/03/2018 Influenza, Trivalent, IM (MDV) 01/07/2015 Influenza, Trivalent, Preser vative Free, Intramuscular 01/05/2017,01/05/2016,01/06/2015,12/01 Influenza, Unspecified 01/19/2022,2013,01/06/2013,01/09 Moderna SARS-CoV-2 Monovalen t Vaccination (12+ YRS) 10/08/2021 Pfizer SARS-CoV-2 Monovalent Vaccination (12+ Yrs) PURPLE 02/04/2021 Pneumococcal Conjugate PCV 13 01/04/2019 Pneumococcal Polysaccharide PPV23 10/08/2014 Tdap 10/11/2015 ZOSTER Recombinant 02/13/2020,12/13/2019 Medical History Medical History Date Comments Diabetes mellitus type I (HCC) Sleep apnea Family History Medical History Relation Name Comments Cancer Mother Irma Sánchez Cancer - (Ad ded by TW Conv) Relation Name Status Comments Mother Irma Sánchez Social History Tobacco Use Types Packs/Day Years Used Date Smoking Tobacco: Every Day Cigarettes 0.5 38 Smokeless Tobacco: Never Tobacco Cessation:Ready to Q uit: No; Counseling Given: No Sex and Gender Information Value Date Recorded Sex Assigned at Not on file Legal Sex Male 8:26 PM CLINICAL MATERIAL HANDLER Gender Identity Not on file Sexual Orientation Not on file Obstetrics History Last Filed Vital Signs Vital Sign Reading Time Taken Comments Blood Pressure 116/77 04/04/2024 8:09 AM CLINICAL MATERIAL HANDLER Pulse 64 04/04/2024 8:09 AM CLINICAL MATERIAL HANDLER Temperature 36.7 C (98 F) 04/04/2024 8:09 AM CLINICAL MATERIAL HANDLER Respiratory Rate 16 01/05/2022 10:59 AM CDT Oxygen Saturation 97% 01/05/2022 10:59 AM CDT Inhaled Oxygen Concentration - - Weight 90.7 kg (200 lb) 04/04/2024 8:09 AM CLINICAL MATERIAL HANDLER Height 175.3 cm (5' 9 ) 11/23/2023 9:57 AM CDT Body Mass Index 29.53 11/23/2023 9:57 AM CDT Plan of Treatment Health Maintenance Due Date Last Done Comments Colon Cancer Screening-Colonoscopy 1969 Depression Screening 1969 Foot Exam 1969 Hepatitis C Screening 1969 Prostate Cancer Screening-PSA 1969 Dilated Eye Exam 07/14/1979 Hepatitis B Screening 07/14/1987 Regular Well Visit/Exam 18-64 07/14/1987 Covid-19 Vaccine (3 - 2023-2 5 season) 2023 10/08/2021, 02/04/2021 Pneumococcal vaccine <65 (3 of 3 - PCV20 or PCV21) 01/05/2024 01/04/2019, 10/08/2014 Hemoglobin A1C 10/02/2024 04/04/2024, 11/01, 07/20/2023, Additional history exists Albumin Creatinine Ratio, Urine 12/07/2024 12/08/2023, 11/03/2022, 09/17/2020, Additional history exists TSH Level 12/07/2024 12/08/2023, 08/0 07/2022, 09/17/2020, Additional history exists eGFR 12/07/2024 12/08/2023, 08/0 07/2022, 09/17/2020, Additional history exists Lipid Panel 04/07/2025 04/07/2024, 09/0 10/2023, 11/03/2022, Additional history exists DTaP/Tdap/Td Vaccine (2 - Td or Tdap) 10/10/2025 10/11/2015 Zoster Vaccine Completed 02/13/2020, 12/13/2019 Influenza Vaccine Completed 01/19/2024, , 12/26/2019, Additional history exists Procedures Procedure Name Priority Date/Time Associated Diagnosis Comments CORTISOL,SALIVA Routine 04/20/2024 11:00 PM CLINICAL MATERIAL HANDLER Right adrenal mass CORTISOL,SALIVA Routine 04/19/2024 11:00 PM CLINICAL MATERIAL HANDLER Right adrenal mass CORTISOL,SALIVA Routine 04/18/2024 11:00 PM CLINICAL MATERIAL HANDLER LIPID PANEL Routine 04/07/2024 3:31 PM CLINICAL MATERIAL HANDLER Type 1 diabetes mellitus without complication (HCC) Insulin pump in place Mixed hyperlipidemia Right adrenal mass POCT HEMOGLOBIN A1C Routine 04/04/2024 8 :15 AM CLINICAL MATERIAL HANDLER Type 1 diabetes mellitus without complication (HCC) COMPREHENSIVE METABOLIC PANEL Routine 12/08/2023 9:25 AM CDT Type 1 diabetes mellitus without complication (HCC) Vitamin D deficiency Insulin pump in place Adrenal adenoma, right ALBUMIN CREATININE RATIO, URINE Routine 12/08/2023 9:25 AM CDT Type 1 diabetes mellitus without complication (HCC) Vitamin D deficiency Insulin pump in place Adrenal adenoma, right THYROID FUNCTION CASCADE Routine 12/08/2023 9:25 AM CDT Type 1 diabetes mellitus without complication (HCC) Vitamin D deficiency Insulin pump in place Adrenal adenoma, right from Last 3 Months or Most Recently Relevant to Health Maintenance Results * Cortisol, saliva (04/20/2024 11:00 PM CLINICAL MATERIAL HANDLER) Cortisol, saliva 0.035 ug/dL [facility] - 01 Comment: This test was developed and its performance characteristics determined by [facility]. It has not been cleared or approved by the Food and Drug Administration. Reference Range: Children and Adults: 8:00a.m.: 0.025 - 0.600 Noon: <0.010 - 0.330 4:00p.m.: 0.010 - 0.200 Bedtime (9:00p.m.-Midnight): <0.010 - 0.090 Saliva specimen (specimen) 04/20/2024 11:00 PM CLINICAL MATERIAL HANDLER 04/21/2024 Narrative [facility] - 05/02/2024 7:09 AM CLINICAL MATERIAL HANDLER Performed at: [facility] [address] [place] [id number] Hide Examiner: Ron Brooks MD, Phone: [phone] Nikki Sibley MD LAB BODY FLUIDS AND STOOLS ORDERABLES Final Result [facility] - 01 * Cortisol, saliva (04/19/2024 11:00 PM CLINICAL MATERIAL HANDLER) [facility] Signature Cortisol, saliva 0.043 ug/dL [facility] - 01 Comment: This test was developed and its performance characteristics determined by [facility]. It has not been cleared or approved by the Food and Drug Administration. Reference Range: Children and Adults: 8:00a.m.: 0.025 - 0.600 Noon: <0.010 - 0.330 4:00p.m.: 0.010 - 0.200 Bedtime (9:00p.m.-Midnight): <0.010 - 0.090 Saliva specimen (specimen) 04/19/2024 11:00 PM CLINICAL MATERIAL HANDLER 04/21/2024 Narrative [facility] - 04/26/2024 9:09 AM CLINICAL MATERIAL HANDLER Performed at: [facility] [address] [place] [address] [id number] Hide Examiner: Ron Brooks MD, Phone: [phone] Nikki Sibley MD LAB BODY FLUIDS AND STOOLS ORDERABLES Final Result Performing Organization Address [facility] de Phone Number [facility] - 01 * Cortisol, saliva (04/18/2024 11:00 PM CLINICAL MATERIAL HANDLER) Cortisol, saliva 0.079 ug/dL [facility] - 01 Comment: This test was developed and its performance characteristics determined by [facility]. It has not been cleared or approved by the Food and Drug Administration. Reference Range: Children and Adults: 8:00a.m.: 0.025 - 0.600 Noon: <0.010 - 0.330 4:00p.m.: 0.010 - 0.200 Bedtime (9:00p.m.-Midnight): <0.010 - 0.090 04/18/2024 11:0 0 PM CLINICAL MATERIAL HANDLER 04/21/2024 Narrative [facility] - 04/26/2024 9:09 AM CLINICAL MATERIAL HANDLER Performed at: [facility] [employer] [address] [place] [address] [id number] Hide Examiner: Ron Brooks MD, Phone: [phone] Nikki Sibley MD LAB BODY FLUIDS AND STOOLS ORDERABLES Final Result Performing Organization Address [facility] de Phone Number [facility] - * Lipid panel (04/07/2024 3:31 PM CLINICAL MATERIAL HANDLER) Blood Nikki Sibley MD LAB BLOOD ORDERABLES Final Result Performing Organization Address [facility] de Phone Number EXTERNAL LAB * POCT hemoglobin A1c (04/04/2024 8:15 AM CLINICAL MATERIAL HANDLER) Hemoglobin A1C, POC 7.4 4.0 - 5.6 % Blood 04/04/2024 8:15 AM CLINICAL MATERIAL HANDLER Nikki Sibley MD POINT OF CARE TEST ORDERAB LES Final Result * Thyroid Function Major (12/08/2023 9:25 AM CDT) TSH 0.791 0.450 - 4.500 uIU/mL [facility] - 01 Comment: No apparent thyroid disorder. Additional testing not indicated. In rare instances, Secondary Hypothyroidism as well as Subclinical Hypothyroidism have been reported in some patients with normal TSH values. Blood 12/08/2023 9:25 AM CDT 12/08/2023 Narrative [facility] - 12/09/2023 8:09 AM CDT Performed at: [address] [id number] Hide Examiner: Ronnie Ayon PhD, Phone: [phone] Nikki Sibley MD LAB BLOOD ORDERABLES Final Result Performing Organization Address [facility] de [facility] * Albumin Creatinine Ratio, Urine (12/08/2023 9:25 AM CDT) Creatinine ur 29.5 Not Estab. mg/dL [facility] - 01 Microalbumin, ur <3.0 Not Estab. ug/mL [facility] - 01 Microalbumin/cre at ratio <10 0 - 29 mg/g creat [facility] - 01 Comment: Normal: 0 - 29 Moderately increased: 30 - 300 Severely increased: >300 Urine 12/08/2023 9:25 AM CDT 12/08/2023 Narrative [facility] - 12/09/2023 7:07 AM CDT Performed at: [address] [id number] Hide Examiner: Ronnie Ayon PhD, Phone: [phone] Nikki Sibley MD LAB URINE ORDERABLES Final Result Performing Organization Address [facility] de Phone Number [facility] - * (ABNORMAL) Comprehensive metabolic panel (12/08/2023 9:25 AM CDT) Glucose 177(H) 70 - 99 mg/dL [facility] - 01 BUN 11 6 - 24 mg/dL [facility] - 01 Creatinine, Serum 0.90 0.76 - 1.27 mg/dL [facility] - 01 eGFR 101 >59 mL/min/1.7 3 [facility] - 01 BUN/creat ratio 12 9 - 20 [facility] - 01 Sodium 139 134 - 144 mmol/L [facility] - 01 Potassium, sr 4.5 3.5 - 5.2 mmol/L [facility] - 01 Chloride 100 96 - 106 mmol/L [facility] - 01 CO2 21 20 - 29 mmol/L [facility] - 01 Calcium 9.5 8.7 - 10.2 mg/dL [facility] - 01 Protein, sr 6.9 6.0 - 8.5 g/dL [facility] - 01 Albumin 4.5 3.8 - 4.9 g/dL [facility] - 01 Globulin, Total 2.4 1.5 - 4.5 g/dL [facility] - 01 Bilirubin, Total <0.2 0.0 - 1.2 mg/dL [facility] - 01 Alk phos 119 44 - 121 IU/L [facility] - 01 AST 19 0 - 40 IU/L [facility] - 01 ALT 17 0 - 44 IU/L [facility] - 01 Blood 12/08/2023 9:25 AM CDT 12/08/2023 Narrative [facility] - 12/09/2023 7:07 AM CDT Performed at: 01 - [facility] [address] [id number] Hide Examiner: Ronnie Ayon PhD, Phone: [phone] us Nikki Sibley MD LAB BLOOD ORDERABLES Final Result [facility] - 01 from Last 3 Months or Most Recently Relevant to Health Maintenance Insurance [id number] [id number] [facility] [id number] Care Teams Nuclear Equipment Sales Engineer Relationship Specialty Start Date End Date Cele Boyer DO [address] [place] [address] DR SALTER [address] [place] [address] [id number] PCP - General Family Medicine 04/04/24
--- OUTSIDE RECORDS SUMMARY | 2024-07-08 12:05 | XMS_ITS | Referral Summary ---
Author Organization [facility] Medical [facility] 2 Address [address] [place] [address] Care Team Providers Care Prototype Machine Operator Name Role Phone Cele oByer DO Primary Care Provider [phone]- [phone] Encounters Date Type Department Care Team Description 04/18/2024 Orders Only [facility] Endocrinology Metabolism and Lipid [address] 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 08/2020- Vitamin [...] effects Assessment & Plan (03/08/2021 5:35 PM PARADI OPERATOR): Continue statin therapy and optimize glycemic control. 08/2020- HDL 102, LDL 97 Assessment & Plan (04/28/2019 10:31 AM PARADI OPERATOR): Continue simvastatin. Tolerating without side effects. Assessment & Plan (01/14/2019 11:03 AM CDT): Continue simvastatin. Tolerating without side effects. Assessment & Plan (10/19/2018 3:15 PM CDT): Continue statin. Tolerating without side effects. Assessment & Plan (04/10/2018 2:46 PM PARADI OPERATOR): Lipid panel on September 17, 2017 showed [...] loss Assessment & Plan (03/08/2021 5:39 PM PARADI OPERATOR): Hemoglobin A1c shows a slight increase to [...] will follow-up in April as scheduled for follow-up. Basal settings: Midnight 0.275 units/hour--> 0.3 units/hour [...] concerns. 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 Eczema 06/24/2014 Immunizations Immunization Administration Dates Next Due Influenza, [...] PPV23 10/08/2014 Tdap 10/11/2015 ZOSTER Recombinant 02/13/2020,12/13/2019 Social History Tobacco Use Types Packs/Day Years Used Date Smoking Tobacco: Every Day Cigarettes 0.5 38 Smokeless Tobacco: Never Tobacco Cessation:Ready to Q uit: No; Counseling Given: No Sex and Gender Information Value Date Recorded Sex Assigned at Not on file Legal Sex Male 8:26 PM PARADI OPERATOR Gender Identity Not on file Sexual Orientation Not on file Last Filed Vital Signs Vital Sign Reading Time Taken Comments Blood Pressure 116/77 04/04/2024 8:09 AM PARADI OPERATOR Pulse 64 04/04/2024 8:09 AM PARADI OPERATOR Temperature 36.7 C (98 F) 04/04/2024 8:09 AM PARADI OPERATOR Respiratory Rate 16 01/05/2022 10:59 AM CDT Oxygen Saturation 97% 01/05/2022 10:59 AM CDT Inhaled Oxygen Concentration - - Weight 90.7 kg (200 lb) 04/04/2024 8:09 AM PARADI OPERATOR Height 175.3 cm (5' 9 ) 11/23/2023 9:57 AM CDT Body Mass Index 29.53 11/23/2023 9:57 AM CDT Plan of Treatment Not on file Procedures Procedure Name Priority Date/Time Associated Diagnosis Comments CORTISOL,SALIVA Routine 04/20/2024 11:00 PM PARADI OPERATOR Right adrenal mass CORTISOL,SALIVA Routine 04/19/2024 11:00 PM PARADI OPERATOR Right adrenal mass CORTISOL,SALIVA Routine 04/18/2024 11:00 PM PARADI OPERATOR LIPID PANEL Routine 04/07/2024 3:31 PM PARADI OPERATOR Type 1 diabetes mellitus without complication (HCC) Insulin pump in place Mixed hyperlipidemia Right adrenal mass POCT HEMOGLOBIN A1C Routine 04/04/2024 8 :15 AM PARADI OPERATOR Type 1 diabetes mellitus without complication (HCC) [...] Results * Cortisol, saliva (04/20/2024 11:00 PM PARADI OPERATOR) Cortisol, saliva 0.035 ug/dL [facility] - 01 Comment: This test was developed and its performance characteristics determined by [facility]. It has not been cleared or approved by the Food and Drug Administration. Reference Range: Children and Adults: 8:00a.m.: 0.025 - 0.600 Noon: <0.010 - 0.330 4:00p.m.: 0.010 - 0.200 Bedtime (9:00p.m.-Midnight): <0.010 - 0.090 Saliva specimen (specimen) 04/20/2024 11:00 PM PARADI OPERATOR 04/21/2024 Narrative [facility] - 05/02/2024 7:09 AM PARADI OPERATOR Performed at: 01 - [facility] [address] [place] [address] [id number] Product Mgr: Ron Brooks MD, Phone: [phone] Nikki Sibley MD LAB BODY FLUIDS AND STOOLS ORDERABLES Final Result [facility] - 01 * Cortisol, saliva (04/19/2024 11:00 PM PARADI OPERATOR) Cortisol, saliva 0.043 ug/dL [facility] - 01 Comment: This test was developed and its performance characteristics determined by [facility]. It has not been cleared or approved by the Food and Drug Administration. Reference Range: Children and Adults: 8:00a.m.: 0.025 - 0.600 Noon: <0.010 - 0.330 4:00p.m.: 0.010 - 0.200 Bedtime (9:00p.m.-Midnight): <0.010 - 0.090 Saliva specimen (specimen) 04/19/2024 11:00 PM PARADI OPERATOR 04/21/2024 Narrative [facility] - 04/26/2024 9:09 AM PARADI OPERATOR Performed at: [facility] [address] [place] [address] [id number] Product Mgr: Ron Brooks MD, Phone: [phone] Nikki Sibley MD LAB BODY FLUIDS AND STOOLS ORDERABLES Final Result Performing Organization Address [facility] de Phone Number [facility] - * Cortisol, saliva (04/18/2024 11:00 PM PARADI OPERATOR) Cortisol, saliva 0.079 ug/dL [facility] - 01 Comment: This test was developed and its performance characteristics determined by [facility]. It has not been cleared or approved by the Food and Drug Administration. Reference Range: Children and Adults: 8:00a.m.: 0.025 - 0.600 Noon: <0.010 - 0.330 4:00p.m.: 0.010 - 0.200 Bedtime (9:00p.m.-Midnight): <0.010 - 0.090 04/18/2024 11:0 0 PM PARADI OPERATOR 04/21/2024 Narrative [facility] - 04/26/2024 9:09 AM PARADI OPERATOR Performed at: [facility] [address] [place] [address] [id number] Product Mgr: Ron Brooks MD, Phone: [phone] Nikki Sibley MD LAB BODY FLUIDS AND STOOLS ORDERABLES Final Result Performing Organization Address [facility] de Phone Number [facility] - * Lipid panel (04/07/2024 3:31 PM PARADI OPERATOR) Blood Nikki Sibley MD LAB BLOOD ORDERABLES Final Result Performing Organization Address [facility] Co de Phone Number EXTERNAL LAB * POCT hemoglobin A1c (04/04/2024 8:15 AM PARADI OPERATOR) Hemoglobin A1C, POC 7.4 4.0 - 5.6 % Blood 04/04/2024 8:15 AM PARADI OPERATOR Nikki Sibley MD POINT OF CARE TEST ORDERAB LES Final Result * Thyroid Function [place] (12/08/2023 9:25 AM CDT) Pathologist [facility] TSH 0.791 0.450 - 4.500 uIU/mL [facility] - 01 Comment: No apparent thyroid disorder. Additional testing not indicated. In rare instances, Secondary Hypothyroidism as well as Subclinical Hypothyroidism have been reported in some patients with normal TSH values. Blood 12/08/2023 9:25 AM CDT 12/08/2023 Narrative [facility] - 12/09/2023 8:09 AM CDT Performed at: [address] [place] [address] [id number] Product Mgr: Ronnie Ayon PhD, Phone: [phone] Nikki Sibley MD LAB BLOOD ORDERABLES Final Result Performing Organization Address [facility] Co de Phone Number [facility] - 01 * Albumin Creatinine Ratio, Urine (12/08/2023 9:25 AM CDT) Pathologist [facility] Creatinine ur 29.5 Not Estab. mg/dL [facility] - 01 Microalbumin, ur <3.0 Not Estab. ug/mL [facility] - 01 Microalbumin/cre at ratio <10 0 - 29 mg/g creat [facility] - 01 Comment: Normal: 0 - 29 Moderately increased: 30 - 300 Severely increased: >300 Urine 12/08/2023 9:25 AM CDT 12/08/2023 Narrative [facility] - 12/09/2023 7:07 AM CDT Performed at: [address] [place] [address] [id number] Product Mgr: Ronnie Ayon PhD, Phone: [phone] Nikki Sibley MD LAB URINE ORDERABLES Final Result [facility] - 01 * (ABNORMAL) Comprehensive metabolic panel (12/08/2023 9:25 AM CDT) [facility] Glucose 177(H) 70 - 99 mg/dL [facility] [...] AM CDT Performed at: 01 - [facility] [address] [id number] Product Mgr: Ronnie Ayon PhD, Phone: [phone] us Nikki Sibley MD LAB BLOOD ORDERABLES Final Result [facility] - 01 from Last 3 Months or Most Recently Relevant to Health Maintenance Insurance [facility] [id number] [facility] [id number] Care Teams Prototype Machine Operator Relationship Specialty Start Date End Date Cele Boyer DO [address] [place] [address] DR SALTER [address] [place] [id number] PCP - General Family Medicine 04/04/24
== END 2024-07-08 10:44 | disposition home or self-care (01) ==
PROVIDERS: PCP Family Medicine; Visit Provider Nurse Practitioner Family
DX: G56.23 Lesion of ulnar nerve, bilateral upper limbs (principal)
CPT/HCPCS: 95886; 95911

== ENCOUNTER 2024-10-28 08:08 | Outpatient (CLI) | payer OTHER, SELFPAY ==
--- OUTSIDE RECORDS SUMMARY | 2024-10-28 08:13 | XMS_ITS | Continuity of Care Document ---
Author Organization [facility] Address [address] [place] [address] Phone Care Team Providers Care Tar Kettle Runner Name Role Phone Arredondo OD, Evan Unavailable Unavailable Advance Directives Directive Yes / No Effective Date File Name No Information Encounters Encounter Description Practice Location Reason(s) For Visit Diagnoses Date Provider Providers Copied on Encounter Formerly [facility], [address], [place], [place], [id number], [place] tel:[phone] [facility] [place] No Information 0 3-200 2 Arredondo OD Evan. [address] , [address], [place], [address], [place]. tel:[phone] Family History Family Member Type Diagnosis Age At Onset No Information Payers Payer name Insurance type Covered constitution party ID Authoriza tion(s) No Information Social History [...]
--- OUTSIDE RECORDS SUMMARY | 2024-10-28 08:13 | XMS_ITS | Clinical Summary ---
Author Organization [facility] Address [facility] [place] [address] Care Team Providers Care Cat Cracker Operator Name Role Phone Unavailable Primary Care Provider [...] of 3 - 19+ 3-dose series) 1989 Pneumococcal Vaccine: 50+ Ye ars (1 of 1 - PCV) 07/14/2019 Zoster Vaccines (1 of 2) 07/14/2019 COVID-19 Vaccine (2023-2 5 season) 2023 Meningococcal B Vaccine Aged Out No l onger eligible based on patient's age to complete this topic Meningococcal Vaccine Aged Out No giancarlo doris eligible based on patient's age to complete this topic RSV Immunizations Under 20 Months Aged Out No longer eligible based on patient's age to complete this topic
--- OUTSIDE RECORDS SUMMARY | 2024-10-28 08:13 | XMS_ITS | Referral Summary ---
Author Organization [facility] Medical [facility] 2 Address [address] [place] [address] Care Team Providers Care Interior Design Coordinator Name Role Phone Cele Boyer DO Primary Care Provider [phone] Encounters Date Type Department Care Team Description 10/13/2024 Orders Only [facility] Endocrinology Metabolism and Lipid [address] [facility] 13th [place] [address] [place] [address] Vannesa Jin, ALBA Type 1 diabetes mellitus without complication (HCC) 10/10/2024 10:00 AM CDT Clinical Support [facility] Endocrinology Metabolism and Lipid [address] [facility] 13th [place] [address] [place] [address] Leah Acharya RN Type 1 diabetes mellitus without complication (HCC) (Primary Dx) 10/10/2024 10:40 AM CDT Office Visit [facility] Endocrinology Metabolism and Lipid [address] [facility] 13th [place] [address] [place] [address] Nikki Sibley MD Type 1 diabetes mellitus without complication (HCC) (Primary Dx); Insulin pump in place; Mixed hyperlipidemia; Right adrenal mass from Last 3 Months Allergies Active Allergy Reactions Criticality Noted Date Comments Ampicillin Penicillins Medications aspirin 81 mg tablet take one daily 06/25/19 15 Active pen needle, diabetic 32 gauge x 5/32 needle using 4 -6 a day 08/06/19 15 Active carBAMazepine (TEGretol) 200 mg tablet 2 times daily. 06/25/19 15 Active multivitamin tabletIndications: Vitamin Deficiency Prevention Take by mouth. Acti ve clobetasol-emollie nt 0.05 % topical foam Apply topically 2 times daily 03/07/20 16 Active calcium carbonate (OS-SAMY) 1,250 mg (500 mg elemental) tablet 11/01/19 21 Active lancets (Accu-Chek Fastclix Lancet Drum) miscIndications:Ty pe 1 diabetes mellitus without complication (HCC) Use to check blood sugar 2-3 times per day using the accu-chek guide 200 each 3 12/28/19 21 Active urine glucose-ketones test strip Use as directed for blood sugar > 300 or when sick 50 strip 1 03/08/20 21 Active cholecalciferol (VITAMIN D-3) 2000 unit tablet Active terbinafine (LamiSIL) 250 mg tablet Take 1 tablet (250 mg total) by mouth daily 10/29/19 22 Active blood glucose diagnostic stripIndications:T ype 1 diabetes mellitus without complication (HCC) Use to test glucose 2-3 times a day using accuchek guide 100 each 3 04/04/19 25 Active atorvastatin (LIPITOR) 40 mg tabletIndications: Mixed hyperlipidemia Take 1 tablet (40 mg total) by mouth daily 90 tablet 3 04/04/19 25 Active insulin aspart (NovoLOG) 100 unit/mL vial for injectionIndicatio ns:Type 1 diabetes mellitus without complication (HCC) USE PER INSULIN PUMP - DAILY DOSE OF 100 UNITS 90 mL 2 06/24/19 25 Active tamsulosin (FLOMAX) 0.4 mg extended release capsule 09/04/19 24 Active insulin glargine (BASAGLAR) 100 unit/mL (3 mL) pen for injectionIndicatio ns:Type 1 diabetes mellitus without complication (HCC) Inject 24 units once daily in case of pump failure 15 mL 1 10/14/19 25 Active glucagon (Baqsimi) 3 mg/actuation spray,non-aerosolI ndications:Type 1 diabetes mellitus without complication (HCC) Administer 1 spray (3 mg total) into one nostril as needed (hypoglycemia) 2 each 10/14/19 25 Active glucagon (Baqsimi) 3 mg/actuation spray,non-aerosol Administer 3 mg into affected nostril(s) as needed (hypoglycemia) 2 each 04/29/19 20 025 Discontin ued(Reord er) insulin glargine (BASAGLAR) 100 unit/mL (3 mL) pen for injectionIndicatio ns:Type 1 diabetes mellitus without complication (HCC) Inject 20 units once daily in case of pump failure 15 mL 1 08/02/19 23 025 Discontin ued(Reord er) Active Problems Problem Noted Date Diagnosed Date Right adrenal mass 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 Diabetes education is beneficial for him as he is intelligent and motivated to manage his diabetes. Has immunity to COVID-19 virus 03/08/2021 Overview (03/08/2021): [employer] vaccine x2 doses. Booster x1 dose. Vitamin D deficiency 12/07/2020 Assessment & Plan (09/04/2021 12:41 PM CDT): -Continue current Vitamin D supplement Assessment & Plan (03/08/2021 5:35 PM RUBBER MOLD MAKER): Continue over the counter supplements. 08/2020- Vitamin [...] effects Assessment & Plan (03/08/2021 5:35 PM RUBBER MOLD MAKER): Continue statin therapy and optimize glycemic control. 08/2020- HDL 102, LDL 97 Assessment & Plan (04/28/2019 10:31 AM RUBBER MOLD MAKER): Continue simvastatin. Tolerating without side effects. Assessment & Plan (01/14/2019 11:03 AM CDT): Continue simvastatin. Tolerating without side effects. Assessment & Plan (10/19/2018 3:15 PM CDT): Continue statin. Tolerating without side effects. Assessment & Plan (04/10/2018 2:46 PM RUBBER MOLD MAKER): Lipid panel on September 17, 2017 showed [...] loss Assessment & Plan (03/08/2021 5:39 PM RUBBER MOLD MAKER): Hemoglobin A1c shows a slight increase to [...] concerns. Assessment & Plan (04/15/2018 5:19 PM RUBBER MOLD MAKER): A1c at today's visit of April 15, [...] Tobacco: Never Tobacco Cessation:Ready to Q uit: Yes; Counseling Given: No Sex and Gender Information Value Date Recorded Sex Assigned at Not on file Legal Sex Male 8:26 PM RUBBER MOLD MAKER Gender Identity Not on file Sexual Orientation Not on file Last Filed Vital Signs Vital Sign Reading Time Taken Comments Blood Pressure 131/74 10/10/2024 10:00 AM CDT Pulse 63 10/10/2024 10:00 AM CDT Temperature 36.8 C (98.3 F) 10/10/2024 10:00 AM CDT Respiratory Rate 16 01/05/2022 10:5 9 AM CDT Oxygen Saturation 97% 01/05/2022 10: 59 AM CDT Inhaled Oxygen Concentration - - Weight 88.8 kg (195 lb 12.8 oz) 025 10:00 AM CDT Height 175.3 cm (5' 9) 10/10/2024 10:0 0 AM CDT Body Mass Index 28.91 10/10/2024 10:00 AM CDT Plan of Treatment Not on file Procedures Procedure Name Priority Date/Time Associated Diagnosis Comments POCT GLUCOSE Routine 10/10/2024 10:01 AM CDT Type 1 diabetes mellitus without complication (HCC) POCT HEMOGLOBIN A1C Routine 10/10/2024 1 0:01 AM CDT Type 1 diabetes mellitus without complication (HCC) LIPID PANEL Routine 04/07/2024 3:31 PM RUBBER MOLD MAKER Type 1 diabetes mellitus without complication (HCC) Insulin pump in place Mixed hyperlipidemia Right adrenal mass COMPREHENSIVE METABOLIC PANEL Routine 12/08/2023 9:25 AM [...] Recently Relevant to Health Maintenance Results * (ABNORMAL) POCT hemoglobin A1c (10/10/2024 10:01 AM CDT) Hemoglobin A1C, POC 7.2(A) 4.0 - 5.6 % Blood 10/10/2024 10:0 1 AM CDT us Nikki Sibley MD POINT OF CARE TEST ORDERAB LES Final Result * POCT glucose (10/10/2024 10:01 AM CDT) Glucose Blood, POC 138 Normal Fasting 70 - 100, Random <200 mg/dL Blood 10/10/2024 10:0 1 AM CDT us Nikki Siblye MD POINT OF CARE TEST ORDERAB LES Final Result * Lipid panel (04/07/2024 3:31 PM RUBBER MOLD MAKER) Blood us Nikki Sibley MD LAB BLOOD ORDERABLES Final Result [facility] * Thyroid Function [place] (12/08/2023 9:25 AM CDT) TSH 0.791 0.450 - 4.500 uIU/mL [facility] - 01 Comment: No apparent thyroid disorder. Additional testing not indicated. In rare instances, Secondary Hypothyroidism as well as Subclinical Hypothyroidism have been reported in some patients with normal TSH values. Blood 12/08/2023 9:25 AM CDT 12/08/2023 Narrative [facility] - 12/09/2023 8:09 AM CDT Performed at: [address] [place] [id number] Mold Maker Helper: Ronnie Ayon PhD, Phone: [phone] Nikki Sibley MD LAB BLOOD ORDERABLES Final Result Performing Organization Address [facility] de Phone Number [facility] - 01 [...] - 12/09/2023 7:07 AM CDT Performed at: [address] [place] [address] [id number] Mold Maker Helper: Ronnie Ayon PhD, Phone: [phone] Nikki Sibley MD LAB URINE ORDERABLES Final Result Performing Organization Address [facility] de Phone Number [facility] - * (ABNORMAL) Comprehensive metabolic panel [...] - 12/09/2023 7:07 AM CDT Performed at: - [facility] [id number] Mold Maker Helper: Ronnie Ayon PhD, Phone: [phone] us Nikki Sibley MD LAB BLOOD ORDERABLES Final Result [facility] - 01 from Last 3 Months or Most Recently Relevant to Health Maintenance Insurance [facility] [id number] [facility] [id number] [facility] [id number] Care Teams Interior Design Coordinator Relationship Specialty Start Date End Date Cele Boyer DO [facility] [address] [place] [address] PCP - General Family Medicine 04/04/24
--- OUTSIDE RECORDS SUMMARY | 2024-10-28 08:13 | XMS_ITS | Clinical Summary ---
Author Organization [facility] ing Address [address] [place] [address] Care Team Providers Care Poultry Farm Laborer Name Role Phone Unavailable Primary Care Provider [...] Comments Blood Pressure 113/62 03/20/2017 1:07 PM YARDER Pulse 72 03/20/2017 1:07 PM YARDER Temperature - - Respiratory Rate - - Oxygen Saturation 97% 10/16/2016 10:28 AM CDT Inhaled Oxygen Concentration - - Weight 83.1 kg (183 lb 3.2 oz) 03/20/2017 1:07 P M YARDER Height 175.3 cm (5' 9) 03/20/2017 1:07 PM YARDER Body Mass Index 27.05 03/20/2017 1:07 PM YARDER Plan of Treatment Health Maintenance Due Date Last Done Comments HEPATITIS B VACCINES (1 of 3 - 19+ 3-dose series) 1989 COLORECTAL SCREENING 2014 Colorectal Cancer Screening 2014 FIT-DNA Q 3 years 2014 FIT/FOBT Q 1 year 2014 Flex Sig/CT Colonography Q 5 years 2014 DIABETES MICROALBUMIN ANNUAL SCREEN 10/11/2016 10/12/2015 DIABETES HBA1C Q 6 MONTHS 04/18/20172016, 02/23/2016, 10/12/2015, Additional history exists DIABETES ANNUAL FOOT EXAM 10/16/20172016, 10/16/2016, 10/11/2015, Additional history exists LDL CHOLESTEROL ANNUAL 10/16/2017 7, 10/12/2015, 09/24/2014 DIABETES ANNUAL RETINAL EXAM 04/10/201812/2017, 03/28/2016, 04/02/2015, Additional history exists ZOSTER VACCINE (1 of 2) 07/14/2019 INFLUENZA VACCINE (#1) 2024 7, 01/06/2016, 01/07/2015 DTAP/TDAP/TD VACCINES (2 - T d or Tdap) 10/10/2025 10/11/2015 Procedures Procedure Name Priority Date/Time Associated Diagnosis Comments HM DIABETES EYE EXAM Routine 04/10/2017 LIPID PANEL Routine 10/16/2016 11:48 AM CDT Pure hypercholesterolemia HEMOGLOBIN A1C Routine 10/16/2016 11:48 AM CDT Type 1 diabetes mellitus without complication (CMS/HCC) MICROALBUMIN/CREA TININE RATIO, RANDOM UR Routine 10/12/2015 7:20 AM CDT Type 1 diabetes mellitus without complication (CMS/HCC) from Last 3 Months or Most Recently Relevant to Health Maintenance Results * HM DIABETES EYE EXAM (04/10/2017) us Martin Rudolph III, OD HEALTH MAINTENANCE Edited Result - Final [facility] CLIA# [id number] [address] [facility], [address] [address] * (ABNORMAL) HEMOGLOBIN A1C (10/16/2016 11:48 AM CDT) HEMOGLOBIN A1C 6.8(H) 4.0 - 6.0 % 10/16/2016 7:24 PM CDT [facility] Comment:Note: Effective as o f 04/23/2015 a new methodology, Turbidimetric inhibition immunoassay (TINIA),has been implemented. EST. AVG GLUCOSE, A1C 148 mg/dL 10/16/2016 7:24 PM CDT [facility] Blood Venipuncture / Unknown 10/16/2016 11:48 AM CDT 10/16/2016 11:48 AM CDT Trbill Devi MD CHEMISTRY ORDERABLES Fi nal Result [facility] CLIA# [id number] [address] [place] [address] * (ABNORMAL) LIPID PANEL (10/16/2016 11:48 AM CDT) CHOLESTEROL 182 <200 mg/dL 10/16/2016 7:33 PM CDT [facility] TRIGLYCERIDE 49 <150 mg/dL 10/16/2016 7:33 PM CDT [facility] HDL 103(H) 40 - 59 mg/dL 10/16/2016 7:33 PM CDT [facility] LDL CALCULATED 69 <100 mg/dL 10/16/2016 7:33 PM CDT [facility] NON-HDL CHOLESTEROL 79 <130 mg/dL 10/16/2016 7:33 PM CDT [facility] Blood Venipuncture / Unknown 10/16/2016 11:48 AM CDT 10/16/2016 11:48 AM CDT Narrative [facility] - 10/16/2016 7:33 PM CDT TOTAL CHOLESTEROL [...] Devi MD CHEMISTRY ORDERABLES Fi nal Result [facility] CLIA# [id number] [address] [place] [address] * MICROALBUMIN/CREATININE RATIO, RANDOM UR (10/12/2015 7:20 [...] - 10/14/2015 7:16 AM CDT Performed at: [address] [facility] [id number] Electronic Equipment Repairer: Ronnie Ayon PhD, Phone: [phone] us Tr Devi MD URINE ORDERABLES Final Result [facility] from Last 3 Months or Most Recently Relevant to Health Maintenance Insurance [employer] O OPEN ACCESS
--- OUTSIDE RECORDS SUMMARY | 2024-10-28 08:14 | XMS_ITS | Clinical Summary ---
Author Organization [facility] 2 Address [address] [facility] [place] [address] Care Team Providers Care Asset Protection Assistant Name Role Phone Cele Boyer DO Primary Care Provider +1- [phone] Allergies Active Allergy Reactions Criticality Noted Date [...] one nostril as needed (hypoglycemia) 2 each 11 10/14/19 25 Active glucagon (Baqsimi) 3 mg/actuation spray,non-aerosol Administer 3 mg into affected nostril(s) as needed (hypoglycemia) 2 each 11 04/29/19 20 025 Discontin ued(Reord er) insulin glargine (BASAGLAR) 100 unit/mL (3 mL) pen for injectionIndicatio ns:Type 1 diabetes mellitus without complication (HCC) Inject 20 units once daily in case of pump failure 15 mL 1 08/02/19 23 025 Discontin ued(Reord er) Active Problems Problem Noted Date Diagnosed Date Right adrenal mass 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 08/2020- Vitamin [...] effects Assessment & Plan (03/08/2021 5:35 PM FACT CHECKER): Continue statin therapy and optimize glycemic control. 08/2020- HDL 102, LDL 97 Assessment & Plan (04/28/2019 10:31 AM FACT CHECKER): Continue simvastatin. Tolerating without side effects. Assessment & Plan (01/14/2019 11:03 AM CDT): Continue simvastatin. Tolerating without side effects. Assessment & Plan (10/19/2018 3:15 PM CDT): Continue statin. Tolerating without side effects. Assessment & Plan (04/10/2018 2:46 PM FACT CHECKER): Lipid panel on September 17, 2017 showed [...] loss Assessment & Plan (03/08/2021 5:39 PM FACT CHECKER): Hemoglobin A1c shows a slight increase to [...] concerns. Assessment & Plan (04/15/2018 5:19 PM FACT CHECKER): A1c at today's visit of April 15, [...] Department Care Team Description 10/13/2024 Orders Only [facility] Endocrinology Metabolism and Lipid [address] [facility] 13th [place] [address] [place] [address] Vannesa Jin, ALBA Type 1 diabetes mellitus without complication (HCC) 10/10/2024 10:40 AM CDT Office Visit [facility] Endocrinology Metabolism and Lipid [address] [facility] 13th [place] [address] [place] [address] Nikki Sibley MD Type 1 diabetes mellitus without complication (HCC) (Primary Dx); Insulin pump in place; Mixed hyperlipidemia; Right adrenal mass 10/10/2024 10:00 AM CDT Clinical Support [facility] Endocrinology Metabolism and Lipid [address] [facility] [address] [place] [address] [place] [address] Leah Acharya, ALBA Type 1 diabetes mellitus without complication (HCC) (Primary Dx) from Last 3 Months Immunizations [...] on file Legal Sex Male 8:26 PM FACT CHECKER Gender Identity Not on file Sexual Orientation [...] 10/10/2024 10:00 AM CDT Plan of Treatment Health Maintenance [...] - PCV20 or PCV21) 01/05/2024 01/04/2019, 10/08/2014 Influenza Vaccine (#1) 2024 , 01/19/2022, 12/26/2019, Additional history exists Albumin Creatinine Ratio, Urine 12/07/2024 12/08/2023, 11/03/2022, 09/17/2020, Additional history exists TSH Level 12/07/2024 12/08/2023, 08/0 07/2022, 09/17/2020, Additional history exists eGFR 12/07/2024 12/08/2023, 08/0 07/2022, 09/17/2020, Additional history exists Lipid Panel 04/07/2025 04/07/2024, 09/0 10/2023, 11/03/2022, Additional history exists Hemoglobin A1C 04/12/2025 10/10/2024, 010 05/2024, 11/23/2023, Additional history exists DTaP/Tdap/Td Vaccine (2 - Td or Tdap) 10/10/2025 10/11/2015 Zoster Vaccine Completed 02/13/2020, 12/13/2019 Procedures Procedure Name Priority Date/Time Associated Diagnosis Comments POCT GLUCOSE Routine 10/10/2024 10:01 AM CDT Type 1 diabetes mellitus without complication (HCC) POCT HEMOGLOBIN A1C Routine 10/10/2024 1 0:01 AM CDT Type 1 diabetes mellitus without complication (HCC) LIPID PANEL Routine 04/07/2024 3:31 PM FACT CHECKER Type 1 diabetes mellitus without complication (HCC) [...] Result * Lipid panel (04/07/2024 3:31 PM FACT CHECKER) Blood us Nikki Sibley MD LAB BLOOD ORDERABLES Final Result EXTERNAL LAB * Thyroid Function [place] (12/08/2023 9:25 AM CDT) TSH 0.791 0.450 - 4.500 uIU/mL [facility] - 01 Comment: No apparent thyroid disorder. Additional testing not indicated. In rare instances, Secondary Hypothyroidism as well as Subclinical Hypothyroidism have been reported in some patients with normal TSH values. Blood 12/08/2023 9:25 AM CDT 12/08/2023 Narrative [facility] - 12/09/2023 8:09 AM CDT Performed at: [address] [place] [id number] Craps Manager: Ronnie Ayon PhD, Phone: [phone] Nikki Sibley MD LAB BLOOD ORDERABLES Final Result Performing Organization Address [facility] de Phone Number [facility] - * Albumin Creatinine Ratio, Urine (12/08/2023 9:25 [...] - 12/09/2023 7:07 AM CDT Performed at: [address] [place] [id number] Craps Manager: Ronnie Ayon PhD, Phone: [phone] Nikki Sibley MD LAB URINE ORDERABLES Final Result Performing Organization Address [facility] de Phone Number [facility] - * (ABNORMAL) Comprehensive metabolic panel [...] 12/09/2023 7:07 AM CDT Performed at: - [facility] [address] [id number] Craps Manager: Ronnie Ayon PhD, Phone: [phone] us Nikki Sibley MD LAB BLOOD ORDERABLES Final Result Performing Organization Address City/State/[facility] Co de Phone Number [facility] - 01 from Last 3 Months or Most Recently Relevant to Health Maintenance Insurance [facility] [id number] [facility] [facility] [id number] [facility] [id number] Care Teams Asset Protection Assistant Relationship Specialty Start Date End Date Cele Boyer DO [address] [facility] [address] [address] PCP - General Family Medicine 04/04/24
[2024-10-28 12:56] LABS: Hematocrit 44.3 % (42.0-52.0); Hemoglobin 14.5 g/dL (14.0-18.0); Mean Corpuscular HGB Conc 32.7 g/dl (32-36); Mean Corpuscular Hemoglobin 30.6 pg (26-34); Mean Corpuscular Volume 93.5 fl (80-100); Platelet Count Result 224 k/mm3 (150-375); Red Blood Count 4.74 M/mm3 (4.6-6.20); White Blood Count 6.7 K/mm3 (4.5-10.0)
[2024-10-28 13:01] LABS: Alanine Aminotransferase 22 U/L (6-50); Albumin Level 4.1 g/dL (3.5-5.1); Alkaline Phosphatase 99 U/L (38-126); Anion Gap 6 mmol/L (4-12); Aspartate Amino Transferase 54 U/L (17-59); Bilirubin,Total 0.2 mg/dL (0.2-1.3); Blood Urea Nitrogen 12 mg/dL (9-20); Calcium 9.1 mg/dL (8.4-10.2); Carbon Dioxide 25 mmol/L (22-30); Chloride 106 mmol/L (98-107); Cholesterol 193 mg/dL (0-200); Estimated Glomerular Filt Rate > 60; Glucose 113 mg/dL (65-110); HDL Direct 97 mg/dL; Potassium 4.0 mmol/L (3.4-5.0); Sodium 137 mmol/L (137-145); Total Protein 6.9 g/dL (6.3-8.2); Triglycerides 54 mg/dL (<150)
[2024-10-28 13:33] LABS: Thyroid Stimulating Hormone 1.400 uIU/mL (0.465-4.680)
[2024-10-28 13:42] LABS: MALB Creatinine Ratio < 6.9 mg/g (0-30)
[2024-10-28 18:10] LABS: Vitamin B12 874.0 pg/mL (239-931)
[2024-10-29 07:09] LABS: TSH 1.400 uIU/mL (0.450-4.500)
== END 2024-10-28 08:09 | disposition home or self-care (01) ==
PROVIDERS: PCP Family Medicine
DX: E10.9 Type 1 diabetes mellitus without complications (principal); E78.00 Pure hypercholesterolemia, unspecified; E27.8 Other specified disorders of adrenal gland; Z79.899 Other long term (current) drug therapy; Z96.41 Presence of insulin pump (external) (internal)
CPT/HCPCS: 36415; 80053; 80061; 82043; 82607; 84439; 84443; 84481; 85027; 86376

== ENCOUNTER 2025-01-23 08:05 | Outpatient (CLI) | payer OTHER, SELFPAY ==
--- OUTSIDE RECORDS SUMMARY | 2025-01-23 08:08 | XMS_ITS | Clinical Summary ---
Author Organization [facility] 2 Address [address] [facility] [place] [address] Care Team Providers Care Slipman Name Role Phone Cele Boyer DO Primary Care Provider [phone]- [phone] Allergies Active Allergy Reactions Criticality Noted Date Comments Ampicillin Penicillins Medications aspirin 81 mg tablet take one daily 5 Active pen needle, diabetic 32 gauge x 5/32 needle using 4 -6 a day 5 Active carBAMazepine (TEGretol) 200 mg tablet 2 times daily. 5 Active multivitamin tabletIndications: Vitamin Deficiency Prevention Take by mouth. Acti ve clobetasol-emollie nt 0.05 % topical foam Apply topically 2 times daily 6 Active calcium carbonate (OS-SAMY) 1,250 mg (500 mg elemental) tablet 1 Active lancets (Accu-Chek Fastclix Lancet Drum) miscIndications:Ty pe 1 diabetes mellitus without complication Use to check blood sugar 2-3 times per day using the accu-chek guide 200 each 3 1 Active urine glucose-ketones test strip Use as directed for blood sugar > 300 or when sick 50 strip 1 1 Active cholecalciferol (VITAMIN D-3) 2000 unit tablet Active terbinafine (LamiSIL) 250 mg tablet Take 1 tablet (250 mg total) by mouth daily 2 Active blood glucose diagnostic stripIndications:T ype 1 diabetes mellitus without complication Use to test glucose 2-3 times a day using accuchek guide 100 each 3 5 Active atorvastatin (LIPITOR) 40 mg tabletIndications: Mixed hyperlipidemia Take 1 tablet (40 mg total) by mouth daily 90 tablet 3 5 Active insulin aspart (NovoLOG) 100 unit/mL vial for injectionIndicatio ns:Type 1 diabetes mellitus without complication USE PER INSULIN PUMP - DAILY DOSE OF 100 UNITS 90 mL 2 5 Active tamsulosin (FLOMAX) 0.4 mg extended release capsule 4 Active insulin glargine (BASAGLAR) 100 unit/mL (3 mL) pen for injectionIndicatio ns:Type 1 diabetes mellitus without complication Inject 24 units once daily in case of pump failure 15 mL 1 5 Active glucagon (Baqsimi) 3 mg/actuation spray,non-aerosolI ndications:Type 1 diabetes mellitus without complication Administer 1 spray (3 mg total) into one nostril as needed (hypoglycemia) 2 each 11 5 Active Active Problems Problem Noted Date Diagnosed Date Right 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 08/2020- Vitamin [...] effects Assessment & Plan (03/08/2021 5:35 PM COMMUTATOR ASSEMBLER): Continue statin therapy and optimize glycemic control. 08/2020- HDL 102, LDL 97 Assessment & Plan (04/28/2019 10:31 AM COMMUTATOR ASSEMBLER): Continue simvastatin. Tolerating without side effects. Assessment & Plan (01/14/2019 11:03 AM CDT): Continue simvastatin. Tolerating without side effects. Assessment & Plan (10/19/2018 3:15 PM CDT): Continue statin. Tolerating without side effects. Assessment & Plan (04/10/2018 2:46 PM COMMUTATOR ASSEMBLER): Lipid panel on September 17, 2017 showed [...] loss Assessment & Plan (03/08/2021 5:39 PM COMMUTATOR ASSEMBLER): Hemoglobin A1c shows a slight increase to [...] concerns. Assessment & Plan (04/15/2018 5:19 PM COMMUTATOR ASSEMBLER): A1c at today's visit of April 15, [...] Encounters Date Type Department Care Team Description 10/29/2024 Results Follow-Up [facility] Medicine Endocrinology Metabolism and Lipid [address] [facility] 13th [place] [address] [place] [address] Nikki Sibley MD Thyroid Function [place], Albumin Creatinine Ratio, Urine, Vitamin B12 from Last 3 Months Immunizations Immunization Administration [...] History Date Comments Diabetes mellitus type I Sleep apnea Family History Medical History Relation [...] on file Legal Sex Male 8:26 PM COMMUTATOR ASSEMBLER Gender Identity Not on file Sexual Orientation [...] Screening 07/14/1987 Regular Well Visit/Exam 18-64 07/14/1987 Pneumococcal vaccine <65 (3 of 3 - PCV20 or PCV21) 01/05/2024 01/04/2019, 10/08/2014 Covid-19 Vaccine (3 - 2024-2 6 season) 2024 10/08/2021, 02/04/2021 Influenza Vaccine (#1) 2024 , 01/19/2022, 12/26/2019, Additional history exists eGFR 12/07/2024 12/08/2023, 07/2022, 09/17/2020, Additional history exists Lipid Panel 04/07/2025 04/07/2024, 0 10/2023, 11/03/2022, Additional history exists Hemoglobin A1C 04/12/2025 10/10/2024, 05/2024, 11/23/2023, Additional history exists DTaP/Tdap/Td Vaccine (2 - Td or Tdap) 10/10/2025 10/11/2015 Albumin Creatinine Ratio, Urine 10/29/2025 10/29/2024, 12/08/2023, 11/03/2022, Additional history exists TSH Level 10/29/2025 10/29/2024, 09/0 10/2023, 11/03/2022, Additional history exists Zoster Vaccine Completed 02/13/2020, 12/13/2019 Procedures Procedure Name Priority Date/Time Associated Diagnosis Comments VITAMIN B12 Routine 10/29/2024 2:01 PM CDT Type 1 diabetes mellitus without complication (HCC) Insulin pump in place Mixed hyperlipidemia Right adrenal mass ALBUMIN CREATININE RATIO, URINE Routine 10/29/2024 2:01 PM CDT Type 1 diabetes mellitus without complication (HCC) Insulin pump in place Mixed hyperlipidemia Right adrenal mass THYROID FUNCTION CASCADE Routine 10/29/2024 2:01 PM CDT Type 1 diabetes mellitus without complication (HCC) Insulin pump in place Mixed hyperlipidemia Right adrenal mass POCT HEMOGLOBIN A1C Routine 10/10/2024 1 0:01 AM CDT Type 1 diabetes mellitus without complication (HCC) LIPID PANEL Routine 04/07/2024 3:31 PM COMMUTATOR ASSEMBLER Type 1 diabetes mellitus without complication (HCC) Insulin pump in place Mixed hyperlipidemia Right adrenal mass COMPREHENSIVE METABOLIC PANEL Routine 12/08/2023 9:25 AM CDT Type 1 diabetes mellitus without complication (HCC) Vitamin D deficiency Insulin pump in place Adrenal adenoma, right from Last 3 Months or Most Recently Relevant to Health Maintenance Results * Vitamin B12 (10/29/2024 2:01 PM CDT) Blood us Nikki Sibley MD LAB BLOOD ORDERABLES Final Re sult EXTERNAL LAB * Albumin Creatinine Ratio, Urine (10/29/2024 2:01 PM CDT) Urine us Nikki Sibley MD LAB URINE ORDERABLES Final Re sult Performing Organization Address [facility] Co de Phone Number EXTERNAL LAB * Thyroid Function [place] (10/29/2024 2:01 PM CDT) Blood us Nikki Sibley MD LAB BLOOD ORDERABLES Final Re sult Performing Organization Address [facility] de Phone Number EXTERNAL LAB * (ABNORMAL) POCT hemoglobin A1c (10/10/2024 10:01 AM CDT) Hemoglobin A1C, POC 7.2(A) 4.0 - 5.6 % Blood 10/10/2024 10:0 1 AM CDT us Nikki Sibley MD POINT OF CARE TEST ORDERABLES Final Result * Lipid panel (04/07/2024 3:31 PM COMMUTATOR ASSEMBLER) Blood us Nikki Sibley MD LAB BLOOD ORDERABLES Final Re sult Performing Organization Address [facility] de Phone Number EXTERNAL LAB * (ABNORMAL) Comprehensive metabolic panel (12/08/2023 9:25 [...] - 12/09/2023 7:07 AM CDT Performed at: [facility] [address] [id number] Gauge Operator: Ronnie Ayon PhD, Phone: [phone] us Nikki Sibley MD LAB BLOOD ORDERABLES Final Re sult [facility] - 01 from Last 3 Months or Most Recently Relevant to Health Maintenance [place] [address] [place] [id number] [employer] [facility] [id number] [facility] [id number] Care Teams Slipman Relationship Specialty Start Date End Date Cele Boyer DO PCP - General Family Medicine 04/04/24
--- OUTSIDE RECORDS SUMMARY | 2025-01-23 08:08 | XMS_ITS | Clinical Summary ---
Author Organization [facility] Address [facility] [place] [address] Care Team Providers Care Slate Roofer Helper Name Role Phone Unavailable Primary Care Provider [...] of 2) 07/14/2019 COVID-19 Vaccine ( - 2024-2 6 season) 2024 Influenza Adult (#1) 2024 Hepatitis A Vaccines Aged Out No long er eligible based on patient's age to complete this topic Meningococcal B Vaccine Aged Out No l onger eligible based on patient's age to complete this topic Meningococcal Vaccine Aged Out No giancarlo doris eligible based on patient's age to complete this topic RSV Immunizations Under 20 Months Aged Out No longer eligible based on patient's age to complete this topic
[2025-01-23 13:00] LABS: Hematocrit 43.5 % (42.0-52.0); Hemoglobin 14.3 g/dL (14.0-18.0); Mean Corpuscular HGB Conc 32.9 g/dl (32-36); Mean Corpuscular Hemoglobin 30.7 pg (26-34); Mean Corpuscular Volume 93.3 fl (80-100); Platelet Count Result 226 k/mm3 (150-375); Red Blood Count 4.66 M/mm3 (4.6-6.20); White Blood Count 5.8 K/mm3 (4.5-10.0)
[2025-01-23 13:13] LABS: Alanine Aminotransferase 21 U/L (6-50); Albumin Level 4.1 g/dL (3.5-5.1); Alkaline Phosphatase 119 U/L (38-126); Anion Gap 7 mmol/L (4-12); Aspartate Amino Transferase 43 U/L (17-59); Bilirubin,Total 0.2 mg/dL (0.2-1.3); Blood Urea Nitrogen 11 mg/dL (9-20); Calcium 8.9 mg/dL (8.4-10.2); Carbon Dioxide 28 mmol/L (22-30); Chloride 103 mmol/L (98-107); Cholesterol 176 mg/dL (0-200); Estimated Glomerular Filt Rate > 60; Glucose 143 mg/dL (65-110); HDL Direct 87 mg/dL; Potassium 4.6 mmol/L (3.4-5.0); Sodium 138 mmol/L (137-145); Total Protein 6.9 g/dL (6.3-8.2); Triglycerides 63 mg/dL (<150)
[2025-01-23 13:53] LABS: Prostate Specific Antigen 0.9 ng/mL (< OR = 4.0); Thyroid Stimulating Hormone 1.240 uIU/mL (0.465-4.680)
== END 2025-01-23 08:06 | disposition home or self-care (01) ==
LOC: ANHGOSHLAB 08:06
PROVIDERS: PCP Family Medicine; Visit Provider Family Medicine
DX: E78.5 Hyperlipidemia, unspecified (principal); E10.9 Type 1 diabetes mellitus without complications; E78.00 Pure hypercholesterolemia, unspecified; Z12.5 Encounter for screening for malignant neoplasm of prostate; Z79.899 Other long term (current) drug therapy
CPT/HCPCS: 36415; 80053; 80061; 84153; 84443; 85027; G0103